=== PATIENT | female | born 1965 | race Caucasian/White ===

== ENCOUNTER 2022-01-29 09:18 | Outpatient (CLI) | payer BC, SELFPAY ==
[2022-01-29 13:38] LABS: Chloride* 104 mmol/L (96-114)
[2022-01-29 13:39] LABS: Potassium* 4.8 mmol/L (3.6-5.1); Sodium* 140 mmol/L (135-149)
[2022-01-29 13:41] LABS: Creatinine* 0.7 mg/dL (0.5-1.5); Estimated Glomerular Filt Rate 101 ml/min
[2022-01-29 13:42] LABS: Blood Urea Nitrogen* 15 mg/dL (7-30); Calcium* 9.5 mg/dL (8.4-10.6); Carbon Dioxide* 30 mmol/L (20-32); Glucose* 98 mg/dL (60-115)
[2022-01-29 14:36] LABS: Thyroid Stimulating Hormone* 0.084 uIU/mL (0.270-4.20)
== END 2022-01-29 09:19 | disposition home or self-care (01) ==
PROVIDERS: PCP Family Medicine; Visit Provider Family Medicine
DX: Z01.818 Encounter for other preprocedural examination (principal); I10 Essential (primary) hypertension; E66.9 Obesity, unspecified
CPT/HCPCS: 80048; 84436; 84443

== ENCOUNTER 2022-02-05 13:57 | Outpatient (CLI) | payer BC, SELFPAY | END 2022-02-05 13:58 | disposition home or self-care (01) | LOC: RAD 13:57 | PROVIDERS: PCP Family Medicine; Visit Provider Family Medicine | DX: Q23.1 Congenital insufficiency of aortic valve (principal) | CPT/HCPCS: 93306 ==

== ENCOUNTER 2022-03-01 13:50 | Outpatient (CLI) | payer BC, SELFPAY ==
--- NOTE | 2022-03-01 14:00 | CRLHL7_ITS ---
For Patients: As a result of the Century Cures Act, medical imaging exams and procedure reports are released immediately into your electronic medical record. You may view this report before your referring provider. If you have questions, please contact your health care provider. BILATERAL SCREENING MAMMOGRAM WITH COMPUTER-AIDED DETECTION AND TOMOSYNTHESIS TECHNIQUE: CC and MLO views were obtained. These mammographic images have been obtained using full-field digital technique. These mammographic images were interpreted with the benefit of computer-aided detection. Breast Tomosynthesis was used in this interpretation. COMPARISON FILM: diagnostic, 02/07/21 MRI, 02/01/21, 01/11/21. FINDINGS: The breasts are almost entirely fatty IMPRESSION: There is no radiographic evidence for malignancy. ASSESSMENT: BI-RADS Category 2: Benign RECOMMENDATION: Routine screening mammogram in 1 year. A lay language report of this examination will be provided to the patient. Noman Ag M.D. Diagnostic Radiologist [email or web address] CHEN/Dictated by: Noman Ag MD @ 03/02/2022 12:23:00 PM (Electronically Signed)
== END 2022-03-01 13:51 | disposition home or self-care (01) ==
LOC: MAMMO 13:50
PROVIDERS: PCP Family Medicine; Visit Provider Family Medicine
DX: Z12.31 Encounter for screening mammogram for malignant neoplasm of breast (principal)
CPT/HCPCS: 77063; 77067

== ENCOUNTER 2022-03-15 10:31 | Outpatient (CLI) | payer BC, SELFPAY ==
[2022-03-15 22:16] LABS: Free T4 Free Thyroxine* 1.38 ng/dL (0.70-1.85)
== END 2022-03-15 10:32 | disposition home or self-care (01) ==
PROVIDERS: PCP Family Medicine; Visit Provider Family Medicine
DX: E03.9 Hypothyroidism, unspecified (principal); I10 Essential (primary) hypertension
CPT/HCPCS: 84439; 84443

== ENCOUNTER 2022-05-02 11:00 | Outpatient (RCR) | payer BC, SELFPAY ==
[2022-01-29 09:41] LABS: Basophils Absolute Auto 0.02 K/uL (0.00-0.30); Basophils Percent Auto 0.4 % (0.0-3.0); Eosinophils Absolute Auto 0.18 K/uL (0.00-0.50); Eosinophils Percent Auto 3.9 % (0.0-7.0); Hematocrit 42.8 % (33.0-51.0); Hemoglobin* 14.2 gm/dL (12.0-16.0); Lymphocytes Percent Auto 17.1 % (20-44); Mean Corpuscular HGB Conc 33 gm/dL (32-36); Mean Corpuscular Hemoglobin 32 pg (26-34); Mean Corpuscular Volume 95 fL (80-100); Monocytes Percent Auto 11.3 % (0.0-11.0); Neutrophils Absolute Auto 3.14 K/uL (1.7-7.0); Neutrophils Percent Auto 67.3 % (42.0-72.0); Platelet Count* 217 K/uL (140-440); Red Blood Count 4.49 m/uL (4.00-5.20); White Blood Count* 4.67 K/uL (4.50-11.00)
[2022-01-29 09:42] LABS: Slide Review Reflex No
== END 2022-05-02 12:54 | disposition home or self-care (01) ==
PROVIDERS: PCP Family Medicine; Visit Provider Surgery
DX: I10 Essential (primary) hypertension (principal); Z01.818 Encounter for other preprocedural examination
CPT/HCPCS: 36415; 85025; 97140; 97530

== ENCOUNTER 2022-06-13 15:15 | Outpatient (RCR) | payer BC, SELFPAY ==
--- NOTE | 2022-07-04 13:49 | PC.NURSE ---
Pt called today requesting a Tamoxifen refill. She contacted [facility] in [place] who was going to send a fax refill request, however, pt was also instructed to call as well. TONY Valladares notified. She will forward the request to the appropriate provider.
--- NOTE | 2022-07-17 15:34 | ONC.NURNOTE ---
Called pt to review changes in [facility] program and Dr. Freeman's transition to [place], returning to [facility] ~ Spring 2022. Pt would like to continue care with [facility]; f/u due 10/2022.
== END 2022-09-03 23:59 | disposition home or self-care (01) ==
LOC: CCIC 15:15
PROVIDERS: PCP Family Medicine; Visit Provider Internal Medicine Hematology & Oncology
DX: C50.912 Malignant neoplasm of unspecified site of left female breast (principal); Z17.0 Estrogen receptor positive status [ER+]; Z79.810 Long term (current) use of selective estrogen receptor modulators (SERMs); E66.9 Obesity, unspecified; Z98.84 Bariatric surgery status
CPT/HCPCS: 99212; 99214; 99215

== ENCOUNTER 2023-01-15 19:20 | Outpatient (CLI) | payer BC, SELFPAY ==
--- NOTE | 2023-01-30 08:15 | P.SLS_ITS ---
Sleep Study Details Details Interpreting Provider: -[id number]- Date of Sleep Study: 01/15/23 Sleep Study Details: STUDY TYPE:? Home unattended ? BMI:? 31.5 ORDERING PROVIDER:Camryn Limon INDICATION:? Concerns about sleep apnea ? SLEEP SUMMARY:? 532.8 minutes monitored RESPIRATORY SUMMARY:? AHI 13.9, supine 18.1, left lateral 3.2, right lateral 5.4 Low oxygen 83 12.6% of study oxygen less than 90% Snoring 2.7% PERIODIC LIMB MOVEMENTS OF SLEEP:? Not recorded during home study CARDIAC:? Range 44-88, mean 54.7 IMPRESSION:? Mild obstructive sleep apnea with supine position dependency and significant hypo oxygenation. RECOMMENDATION: AutoSet CPAP pressure 4-17. A dental appliance may be a viable option for this patient.
== END 2023-01-15 19:21 | disposition home or self-care (01) ==
LOC: SLEEP 19:21
PROVIDERS: PCP Family Medicine; Visit Provider Otolaryngology
DX: G47.33 Obstructive sleep apnea (adult) (pediatric) (principal)
CPT/HCPCS: 95806

== ENCOUNTER 2023-02-28 12:55 | Outpatient (CLI) | payer BC, SELFPAY ==
--- NOTE | 2023-02-28 13:00 | CRLHL7_ITS ---
For Patients: As a result of the Century Cures Act, medical imaging exams and procedure reports are released immediately into your electronic medical record. You may view this report before your referring provider. If you have questions, please contact your health care provider. DXA BONE MINERAL DENSITY STUDY Reason for exam: Status post left breast lumpectomy. Screening. Current height (in): 66. Weight (lb): 194. Menopause age: N/A Ethnicity: White 1. Have you had a previous hip or vertebral fracture? No. 2. Have you had any fractures during your adult life which did not result from significant trauma (e.g., auto accident)? No. 3. Did either of your parents have a hip fracture? No. 4. Do you smoke? No. 5. Have you ever taken Glucocorticoids? No. 6. Do you have rheumatoid arthritis? No. 7. Do you have secondary osteoporosis? No. 8. Do you drink 3 or more alcoholic drinks per day? No. 9. Are you being treated for osteoporosis? No. 10. Have you ever taken any of the following medications: Actonel, Evista, Fosamax, Miacalcin, Reclast, Boniva, Forteo, HRT (i.e., estrogen/hormone therapy), Protelos, Prolia, Vitamin D, Calcium, other ??? please specify. ANSWER: Yes, Vitamin D and calcium. 11. Do you have any of the following medical conditions: Anorexia or bulimia, asthma or emphysema, end stage renal disease, hyperparathyroidism, any seizure disorders, cancer, inflammatory bowel diseases, hysterectomy, other ??? please specify. ANSWER: Yes, cancer and bicuspid aortic valve 12. What was your maximum height (inches)? 66. 13. Do you perform weight bearing exercise regularly? Yes. 14. Do you regularly consume dairy products? Yes. 15. Do you drink caffeinated beverages? No. If female: 16. At what age did your period start? 12. 17. Are you premenopausal? Yes. 18. How many full-term pregnancies have you had? 3. 19. Have you ever missed your period for more than 6 months in a row (not including or menopause)? Yes. TECHNIQUE: Bone mineral density study was performed using the [employer]. FINDINGS: The results of the study expressed as bone mineral density (BMD) are as follows: Lumbar spine L1 to L4: BMD: 1.378 g/cm2. T-score: 3.0. Z-score: 4.3 Neck Left: BMD: 0.939 g/cm2. T-score: 0.8. Z-score: 2.0 Right: BMD: 1.016 g/cm2. T-score: 1.5. Z-score: 2.7 Total Left: BMD: 1.057 g/cm2. T-score: 0.9. Z-score: 1.8 Right: BMD: 1.088 g/cm2. T-score: 1.2. Z-score: 2.0 IMPRESSION: Normal findings with no increased fracture risk identified. The Z-score is within the expected range for age (Z-score above -2.0). (The World Health Organization [WHO] criteria do not apply to this patient). This patient does not fit the criteria to use the database of postmenopausal women. That database is useful for perimenopausal and postmenopausal women, and men 50 years old and older. Therefore, the T-scores are not useful to evaluate this patient and only the Z-scores are used. Noman Ag M.D. Diagnostic Radiologist [email or web address] LINDA/ivy haynes/Dictated by: Noman Ag MD @ 03/01/2023 11:25:00 AM (Electronically Signed)
== END 2023-02-28 12:56 | disposition home or self-care (01) ==
LOC: RAD 12:56
PROVIDERS: PCP Family Medicine; Visit Provider Internal Medicine Hematology & Oncology
DX: Z13.820 Encounter for screening for osteoporosis (principal)
CPT/HCPCS: 77080

== ENCOUNTER 2023-03-04 15:16 | Outpatient (CLI) | payer BC, SELFPAY ==
--- NOTE | 2023-03-04 15:20 | CRLHL7_ITS ---
For Patients: As a result of the Century Cures Act, medical imaging exams and procedure reports are released immediately into your electronic medical record. You may view this report before your referring provider. If you have questions, please contact your health care provider. BILATERAL SCREENING MAMMOGRAM WITH COMPUTER-AIDED DETECTION AND TOMOSYNTHESIS TECHNIQUE: CC and MLO views were obtained. These mammographic images have been obtained using full-field digital technique. These mammographic images were interpreted with the benefit of computer-aided detection. Breast Tomosynthesis was used in this interpretation. COMPARISON FILM: 03/01/22, 01/24/21, 01/11/21. FINDINGS: There are scattered areas of fibroglandular density IMPRESSION: There is no radiographic evidence for malignancy. ASSESSMENT: BI-RADS Category 2: Benign RECOMMENDATION: Routine screening mammogram in 1 year. A lay language report of this examination will be provided to the patient. Noman Ag M.D. Diagnostic Radiologist [email or web address] CHEN/Dictated by: Noman Ag MD @ 03/05/2023 8:24:00 AM (Electronically Signed)
== END 2023-03-04 15:17 | disposition home or self-care (01) ==
LOC: MAMMO 15:16
PROVIDERS: PCP Family Medicine; Visit Provider Internal Medicine Hematology & Oncology
DX: Z12.31 Encounter for screening mammogram for malignant neoplasm of breast (principal); Z13.820 Encounter for screening for osteoporosis
CPT/HCPCS: 77063; 77067

== ENCOUNTER 2023-03-06 14:22 | Outpatient (RCR) | payer BC, SELFPAY ==
[2023-03-06 21:03] LABS: Estradiol Premenol Female <20 pg/mL
[2023-03-07 02:56] LABS: Luteinizing Hormone 20.6 IU/L
== END 2023-04-30 23:59 | disposition home or self-care (01) ==
LOC: CCIC 14:22
PROVIDERS: PCP Family Medicine; Referring Provider Family Medicine; Visit Provider Internal Medicine Hematology & Oncology
DX: C50.912 Malignant neoplasm of unspecified site of left female breast (principal); Z17.0 Estrogen receptor positive status [ER+]; G47.00 Insomnia, unspecified; E66.9 Obesity, unspecified; Z79.810 Long term (current) use of selective estrogen receptor modulators (SERMs)
CPT/HCPCS: 36415; 82670; 83001; 83002; 99212; 99214

== ENCOUNTER 2023-05-17 09:45 | Outpatient (CLI) | payer BC, SELFPAY | END 2023-05-17 09:46 | disposition home or self-care (01) | LOC: RAD 09:46 | PROVIDERS: PCP Family Medicine; Visit Provider Family Medicine | DX: Q23.1 Congenital insufficiency of aortic valve (principal); I51.7 Cardiomegaly; I35.1 Nonrheumatic aortic (valve) insufficiency | CPT/HCPCS: 93306 ==

== ENCOUNTER 2023-10-03 15:30 | Outpatient (RCR) | payer BC, SELFPAY ==
--- NOTE | 2023-09-03 09:35 | ONC.NURNOTE ---
Addendum entered by Evita Marte RN 09/10/23 11:48: Reviewed with Dr. Freeman; advise to double Vit D x 2-3 weeks. RTC if no improvement. Reviewed with pt. 6 mo f/u appt with Wendy Schaefer PA-C moved earlier from 11/14/23 to 10/03/23. If pt feeling better, ok to push appt back to October. Pt verbalizes understanding. Addendum entered by Evita Marte RN 09/03/23 13:33: Lm for pt recommending Tylenol, warm/cool compresses, warm baths with epsom salts, OTC arthritis creams. Reinforced we will review with Onc team when back in office next 09/08, saying if she has a sudden worsening of pain or needs more intervention prior to then to see a PCP. Original Note: Patient called office with the following concerns: Needs her ambien refilled for sleep. She states that she uses this about weekly. She was informed that this would be addressed next week when Dr. Freeman returns to the office. Patient continues to have aches and pains in bilateral shoulders and upper arms. She notes that this has been going on since she was diagnosed with influenza a few weeks ago. At last visit with Wendy Schaefer, they attributed to influenza, but it has not improved. She is wondering if there is something that she should take or have her medication switched. She was told that [facility] would call her with suggestions to try later this afternoon, and plan for whether this would be cause for changing her AI.
== END 2023-11-05 23:59 | disposition home or self-care (01) ==
LOC: CCIC 15:30
PROVIDERS: PCP Family Medicine; Referring Provider Family Medicine; Visit Provider Physician Assistant
DX: C50.912 Malignant neoplasm of unspecified site of left female breast (principal); Z17.0 Estrogen receptor positive status [ER+]; Z79.811 Long term (current) use of aromatase inhibitors; G47.00 Insomnia, unspecified; R42 Dizziness and giddiness; R51.9 Headache, unspecified; Z90.3 Acquired absence of stomach [part of]
CPT/HCPCS: 80053; 80061; 84443; 99212; 99214; 99215; G0463

== ENCOUNTER 2024-03-11 08:09 | Outpatient (CLI) | payer BC, SELFPAY ==
--- OUTSIDE RECORDS SUMMARY | 2024-03-11 08:12 | XMS_ITS ---
Author Organization [facility] Address [address], [place] [address] Care Team Providers Care Handle Rounder Operator Name Role Phone Rene Bustillo MD Primary Care Provider [phone] Active Problems Problem Noted Date Diagnosed Date Primary osteoarthritis of left ankle 04/09/2022 Overview (04/09/2022): Added automatically from request for surgery [id number] Acquired varus deformity of left ankle Overview (04/09/2022): Added automatically from request for surgery [id number] S/P laparoscopic cholecystectomy 02/19/2022 S/P laparoscopic sleeve gastrectomy 02/19/2022 Overview (02/19/2022): laparoscopic sleeve gastrectomy, cholecystectomy, upper endoscopy Please do not schedule any elective surgeries before 03/22/22 as patient is s/p bariatric surgery. Invasive ductal carcinoma of breast, female, lef t 02/02/2021 Obstructive sleep apnea 01/31/2021 Overview (01/31/2021): Setting: AutoPAP 5-18 cmH20 Supplied by: Danya Foster PSG done: AHI RDI Lowest O2 Sat: Morbid obesity with BMI of 40.0-44.9, adult 07/2 08/2020 Ascending aortic aneurysm 01/13/2021 Bicuspid aortic valve 01/13/2021 Hypertension 01/13/2021 H/O tubal ligation 01/13/2021 Current Oncology Plans No current plan information found. Past Plans No past plan information found. Radiation Treatments * No radiation treatments are documented for this patient in [facility]. Treatments may have been administered in another system. Lifetime Dose Tracking * Chemical Lifetime Dose Automatic Entry Manual Entr y Fluoro Time 3.4 minutes 3.4 minutes 0 minutes Total Air Kerma 4.57 mGy 4.57 mGy 0 mGy
--- OUTSIDE RECORDS SUMMARY | 2024-03-11 08:12 | XMS_ITS | Encounter Summary ---
Author Organization [facility] Address [address], [place] [address] Care Team Providers Care Mold Setter Name Role Phone Rene Bustillo MD Primary Care Provider [phone] Encounter Details Date Type Department Care Team (Late Contact Info) Description 03/06/2024 E-Visit [facility] [address] [place] [address] Mychart, [place] [address] Social History Tobacco Use Types Packs/Day Years Used Date Smoking Tobacco: Former Cigarettes Q uit: 2010 Smokeless Tobacco: Never Alcohol Use Standard Drinks/Week Comments Not Currently 0 (1 standard drink = 0.6 oz pur e alcohol) occasional PHQ-2 Answer Date Recorded PHQ-2 Score 0 03/10/2024 Sex and Gender Information Value Date Recorded Sex Assigned at Not on file Gender Identity Not on file Sexual Orientation Not on file documented as of this encounter Plan of Treatment Upcoming Encounters Date Type Department Care Team ([facility] Contact Info) Description 05/28/2024 9:00 AM RURAL CARRIER ASSOCIATE Telemedicine [facility] [address] [facility] [address] [facility] [address] [place] [address] Ramya Porras, RDN, LD [address] [place] [address] 08/18/2024 9:20 AM RURAL CARRIER ASSOCIATE Telemedicine [facility] [address] [place] [address] [address] [place] [address] Joseph Chase PA-C [address] [facility] [address] [place] [address] documented as of this encounter Visit Diagnoses Not on filedocumented in this encounter Care Teams Mold Setter Relationship Specialty Start Date End Date Rene Bustillo MD [address] [place] [address] PCP - General Family Practice 06/19/22 documented as of this encounter
--- OUTSIDE RECORDS SUMMARY | 2024-03-11 08:12 | XMS_ITS | Encounter Summary ---
Author Organization [facility] Address [address], [place] [address] Care Team Providers Care Credit Portfolio Advisor Name Role Phone Rene Bustillo MD Primary Care Provider [phone] Reason for Visit * Reason Comments Medication Questions Entered automatical ly based on patient selection in [employer]. Encounter Details Date Type Department Care Team ([facility] Contact Info) Description 12/16/2023 8:30 AM CDT E-Visit [facility] [place] [address] [place] [address] [address] [place], [place] [address] Joseph Chase PA-C [address] [place] [address] [place] [id number] Chief Comp: Medication Questions Social History Tobacco Use Types Packs/Day Years Used Date Smoking Tobacco: Former Cigarettes Q uit: 2010 Smokeless Tobacco: Never Alcohol Use Standard Drinks/Week Comments Not Currently 0 (1 standard drink = 0.6 oz pur e alcohol) occasional PHQ-2 Answer Date Recorded PHQ-2 Score 0 10/21/2023 Sex and Gender Information Value Date Recorded Sex Assigned at Not on file Gender Identity Not on file Sexual Orientation Not on file documented as of this encounter Plan of Treatment Upcoming Encounters Date Type Department Care Team ([facility] Contact Info) Description 05/28/2024 9:00 AM MILK DELIVERY DRIVER Telemedicine [facility] [place] [address] [facility] [address] [place], [place] [address] Ramya Porras RDN, LD [address] [place], [place] [id number] 08/18/2024 9:20 AM MILK DELIVERY DRIVER Telemedicine [facility] [address] [facility] [address] [place], [place] [address] Joseph Chase PAMarco AntonioC [address] [facility] [address] [place], [place] [id number] documented as of this encounter Visit Diagnoses Not on filedocumented in this encounter Care Teams Credit Portfolio Advisor Relationship Specialty Start Date End Date Rene Bustillo MD [address] [place] [address] PCP - General Family Practice 06/19/22 documented as of this encounter
--- OUTSIDE RECORDS SUMMARY | 2024-03-11 08:12 | XMS_ITS | Encounter Summary ---
Author Organization [facility] Address [address], [place] [address] Care Team Providers Care Executive Assistant To President Name Role Phone Rene Bustillo MD Primary Care Provider [phone] Reason for Visit * Reason Comments Nutrition Counseling Encounter Details Date Type Department Care Team (Late st Contact Info) Description 02/27/2024 10:00 AM CDT Telemedicine [facility] [address] [facility] [address] [place], [place] [address] Ramya Porras, SAMANTHAN, LD [address] [place] [address] Morbid obesity with BMI of 40.0-44.9, adult ([facility]) (Primary Dx); Obstructive sleep apnea; Hypertension, unspecified type ([facility]); S/P laparoscopic sleeve gastrectomy Social History Tobacco Use Types Packs/Day Years Used Date Smoking Tobacco: Former Cigarettes Q uit: 2009 Smokeless Tobacco: Never Alcohol Use Standard Drinks/Week Comments Not Currently 0 (1 standard drink = 0.6 oz pur e alcohol) occasional PHQ-2 Answer Date Recorded PHQ-2 Score 0 10/21/2023 Sex and Gender Information Value Date Recorded Sex Assigned at Not on file Gender Identity Not on file Sexual Orientation Not on file documented as of this encounter Last Filed Vital Signs Vital Sign Reading Time Taken Comments Blood Pressure - - Pulse - - Temperature - - Respiratory Rate - - Oxygen Saturation - - Inhaled Oxygen Concentration - - Weight 93.4 kg (206 lb) 02/27/2024 10:08 AM CDT Height 167.6 cm (5' 6) 02/27/2024 10:08 AM CDT Body Mass Index 33.25 02/27/2024 10:08 AM CDT documented in this encounter Progress Notes * Brandonoc Ramya Andres, RDN, LD - 02/27/2024 10:00 AM CDT [facility] Medical Nutrition Therapy: Bariatric Post-Op/Weight Management Post-op ASSESSMENT: Referring Provider: Joseph Chase PA-C BMI: Estimated body mass index is 33.25 kg/m?? as calculated from the following: Height as of this encounter: 1.676 m (5' 6). Weight as of this encounter: 93.4 kg (206 lb). Follow-up after sleeve gastrectomy surgery. Date of Surgery: February 19, 2022. Since last RD visit: Overall, feels good. Still struggles with cravings for sweets or other snacks after dinner. Craves specific textures and flavors as part of her wind down nightly routine. Sometimes she is satisfiedwith a small portion of a snack, other days, she will go back for more. Has tried many things to distract or change these cravings without success. Did start naltrexone but did not notice it reduced her desire to eat in the evenings. Traveled often this summer, more dining out. Water aerobics on hold due to skin cancer treatment on her back. Exercise: Patient is not engaging in physical activity: Presently on hold due to skin cancer treatment on her back - typically does water aerobics. Discussed switching her exercise routine to strength training 2-3 x week instead to see if it stimulates further weight loss. DIAGNOSIS: We will continue to treat the following obesity-associated medical conditions and conditions exacerbated by or contributing to weight gain by aggressive management of weight: LINH, HtN INTERVENTION: Medical Nutrition Therapy provided on post bariatric surgery nutrition and activity behaviors. MONITORING AND EVALUATION: Patient goals: 1. Shrink portion of sweets at night 2. Try eating your snack a bit later in the evening so not tempted to go back for second snack- wait it out to have your first snack.? 3. Pt considering behavioral health f/u to explore other skills for emotional eating. Gave ph #. 4. Suggested switching exercise up- trial weights 2-3 x week in addition to swimming or walking. Follow up with dietitian in 3-6 month(s). Time: 30 minutes Thank you for this referral This visit was conducted via video documented in this encounter Plan of Treatment Upcoming Encounters Date Type Department Care Team (Late st Contact Info) Description 05/28/2024 9:00 AM HAND FUR CLEANER Telemedicine [facility] [address] [facility] [address] [place], [place] [address] Ramya Porras RDN, LD [address] [place], [place] [address] 08/18/2024 9:20 AM HAND FUR CLEANER Telemedicine [facility] [place] [address] [facility] [address] [place], [place] [address] Joseph Chase PA-C [address] [facility] [address] [place], [place] [address] documented as of this encounter Visit Diagnoses Diagnosis Morbid obesity with BMI of 40.0-44.9, adult ([facility])- Primary Obstructive sleep apnea Obstructive sleep apnea (adult) (pediatric) Hypertension, unspecified type ([facility]) S/P laparoscopic sleeve gastrectomy documented in this encounter Care Teams Executive Assistant To President Relationship Specialty Start Date End Date Rene Bustillo MD [address] [place] [address] PCP - General Family Practice 06/19/22 documented as of this encounter
--- OUTSIDE RECORDS SUMMARY | 2024-03-11 08:12 | XMS_ITS | Encounter Summary ---
Author Organization Replaced by [facility] Address [address], [place] [address] Care Team Providers Care Machinist Supervisor Outside Name Role Phone Rene Bustillo MD Primary Care Provider [phone] Encounter Details Date Type Department Care Team (Late Contact Info) Description 03/05/2024 10:00 AM CDT Lab Visit [address] [address] Status post bariatric surgery; Intestinal malabsorption, unspecified type; Personal history of endocrine disorder Social History Tobacco Use Types Packs/Day Years [...] Upcoming Encounters Date Type Department Care Team ([facility] Contact Info) Description 05/28/2024 9:00 AM [facility] Telemedicine [facility] [address] [facility] [address] [place], [place] [address] Ramya Porras, RDN, LD [address] [place] [address] 08/18/2024 9:20 AM [facility] Telemedicine [facility] [address] [facility] [address] [place] [address] Joseph Chase PA-C [address] [facility] [address] [place] [address] documented as of this encounter Procedures Procedure Name Priority Date/Time Associated Diagnosis Comments VITAMIN D 25-HYDROXY, TOTAL Routine 03/05/2024 9:23 AM CDT Personal history of endocrine disorder INTACT PTH Routine 03/05/2024 9:23 AM CDT Status post bariatric surgery Intestinal malabsorption, unspecified type PREALBUMIN Routine 03/05/2024 9:23 AM CDT Status post bariatric surgery Intestinal malabsorption, unspecified type COMPLETE BLOOD COUNT-NO DIFF Routine 03/05/2024 9:23 AM CDT Status post bariatric surgery Intestinal malabsorption, unspecified type FERRITIN Routine 03/05/2024 9:23 AM CDT Status post bariatric surgery Intestinal malabsorption, unspecified type VITAMIN B12 ONLY Routine 03/05/2024 9:23 AM CDT Status post bariatric surgery Intestinal malabsorption, unspecified type IRON PROFILE (IRON,TIBC,%SAT.(CA LC)) Routine 03/05/2024 9:23 AM CDT Status post bariatric surgery Intestinal malabsorption, unspecified type CALCIUM Routine 03/05/2024 9:23 AM CDT Status post bariatric surgery Intestinal malabsorption, unspecified type documented in this encounter Results * PREALBUMIN (03/05/2024 9:23 AM CDT) Prealbumin 26.5 16.0 - 38.0 mg/dL 03/05/2024 2:39 PM CDT [facility] Blood Venipuncture / Unknown 03/05/2024 9:23 AM CDT 03/05/2024 9:23 AM CDT Joseph Chase PA-C LAB_1 Performing Organization Address [facility] Co de Phone Number [facility] [address] * Calcium (03/05/2024 9:23 AM CDT) Calcium 9.7 8.4 - 10.4 mg/dL 03/05/2024 3:19 PM CDT [facility] Blood Venipuncture / Unknown 03/05/2024 9:23 AM CDT 03/05/2024 9:23 AM CDT Joseph Chase PA-C LAB_1 Performing Organization Address [facility] de Phone Number [facility] [address] [place] [address] * Intact PTH (03/05/2024 9:23 AM CDT) Intact PTH 31 10 - 100 pg/mL 03/05/2024 2:50 PM CDT [facility] Blood Venipuncture / Unknown 03/05/2024 9:23 AM CDT 03/05/2024 9:23 AM CDT Joseph Chase PA-C LAB_1 Performing Organization Address [facility] de Phone Number [facility] [address] * Vitamin D 25-Hydroxy, Total (03/05/2024 9:23 AM CDT) Vitamin D, 25-OH, Total 63 30 - 80 ng/mL 03/05/2024 2:56 PM CDT [facility] Blood Venipuncture / Unknown 03/05/2024 9:23 AM CDT 03/05/2024 9:23 AM CDT Joseph E Gospodarek PA-C LAB_1 Performing Organization Address [facility] Co de Phone Number [facility] [address] * FERRITIN (03/05/2024 9:23 AM CDT) Ferritin 87 9 - 204 ng/mL 03/05/2024 3:06 PM CDT [facility] Blood Venipuncture / Unknown 03/05/2024 9:23 AM CDT 03/05/2024 9:23 AM CDT Joseph Ruiz Salvatore BRONSON-C LAB_1 Performing Organization Address [facility] Phone Number [facility] [address] * IRON PROFILE (IRON,TIBC,%SAT.(CALC)) (03/05/2024 9:23 AM CDT) Pathologist [facility] Iron 98 50 - 170 mcg/dL 03/05/2024 2:40 PM CDT [facility] Transferrin 245 180 - 382 mg/dL 03/05/2024 2:40 PM CDT [facility] TIBC, Calculated 306 240 - 450 mcg/dL 03/05/2024 2:40 PM CDT [facility] % Saturation, Calculated 32 10 - 50 % 03/05/2024 2:40 PM CDT [facility] Blood Venipuncture / Unknown 03/05/2024 9:23 AM CDT 03/05/2024 9:23 AM CDT Joseph Ruiz Salvatore LARRYC LAB_1 Performing Organization Address [facility] de Phone Number [facility] [address] * B12 ONLY (03/05/2024 9:23 AM CDT) Vitamin B12 597 213 - 816 pg/mL 03/05/2024 3:13 PM CDT [facility] Blood Venipuncture / Unknown 03/05/2024 9:23 AM CDT 03/05/2024 9:23 AM CDT Joseph Chase PA-C LAB_1 [facility] [address] [place], [place] [address] * Complete Blood Count-No Diff (03/05/2024 9:23 AM CDT) WBC 4.5 3.5 - 10.5 x10(9)/L 03/05/2024 9:31 AM CDT [facility] RBC 4.43 3.90 - 5.03 x10(12)/L 03/05/2024 9:31 AM T [facility] Hemoglobin 13.8 12.0 - 15.5 g/dL 03/05/2024 9:31 AM T [facility] HCT 41.6 34.9 - 44.5 % 03/05/2024 9:31 AM [facility] MCV 93.9 80.0 - 100.0 fL 03/05/2024 9:31 AM T [facility] MCH 31.2 27.6 - 33.3 pg 03/05/2024 9:31 AM [facility] MCHC 33.2 31.5 - 35.2 g/dL 03/05/2024 9:31 AM [facility] RDW 13.3 11.9 - 15.5 % 03/05/2024 9:31 AM [facility] Platelets 220 150 - 450 x10(9)/L 03/05/2024 9:31 AM [facility] Blood Venipuncture / Unknown 03/05/2024 9:23 AM CDT 03/05/2024 9:23 AM CDT Joseph Chase PA-C LAB_1 [facility] [address] [place] [address], [facility] documented in this encounter Visit Diagnoses Diagnosis Status post bariatric surgery Bariatric surgery status Intestinal malabsorption, unspecified type Personal history of endocrine disorder Personal history of other endocrine, metabolic, and immunity disorders documented in this encounter Care Teams Machinist Supervisor Outside Relationship Specialty Start Date End Date Rene Bustillo MD [address] [place] [address] PCP - General Family Practice 06/19/22 documented as of this encounter
--- OUTSIDE RECORDS SUMMARY | 2024-03-11 08:12 | XMS_ITS | Clinical Summary ---
Author Organization [facility] Address [address] [place] [address] Care Team Providers Care Slip Presser Name Role Phone Rene Bustillo MD Primary Care Provider [phone] Source Comments You are receiving this document as you are listed as the primary care provider,follow-up provider, or the patient has been referred to you for consultation.This is in compliance with the Medicare and[employer] [employer] EHR Incentive Program,which states Providers who transition their patient to another setting of careor provider of care or refers their patient to another provider of care shouldprovide summary care record for each transition of care or referral. PingMD Allergies Active Allergy Reactions Criticality Noted Date Comments Nsaids Unknown 06/14/2022 Medications Medication Sig Dispensed Refills Start Date End Date Status tamoxifen (NOLVADEX) 20 MG tablet Take 1 Tablet (20 mg) by mouth daily. 02/26/2022 Active acetaminophen (TYLENOL) 325 MG tablet Take Tylenol 650 mg four times per day - once when you get up, once before you go to bed, once between when you would normally have breakfast and lunch, and the last between a normal lunch and dinner. 02/19/2022 Active losartan (COZAAR) 50 MG tablet Take 0.5 Tablets (25 mg) by mouth daily. 03/15/2022 Active magnesium oxide (MAGOX 400) 400 (241.3 Mg) MG tablet 05/24/2021 Active cholecalciferol (VITAMIND3) 50 MCG (2000 UT) tablet Take 2 Tablets (4,000 Units) by mouth daily. Active senna (SENOKOT) 8.6 MG tablet Take 1 Tablet by mouth daily as needed for Constipation (Mild Constipation). 30 Tablet 1 06/20/2022 Active zolpidem (AMBIEN) 5 MG tablet Take 1 Tablet (5 mg) by mouth at bedtime as needed for Sleep. Active Multiple Vitamins-Iron (MULTIVITAMIN/I AAKASH OR) Active anastrozole (ARIMIDEX) 1 MG tablet Take 1 Tablet (1 mg) by mouth daily. 06/06/2023 Active vitamin B-12 (AKA: CYANOCOBALAMIN) 1000 MCG tablet Take 1 Tablet (1,000 mcg) by mouth once a week. Take sublingually weekly Active naltrexone (REVIA) 50 MG tablet Take 0.5 Tablets (25 mg) by mouth daily. 45 Tablet 1 10/22/2023 Active topiramate (TOPAMAX) 25 MG tablet Take 1 Tablet (25 mg) by mouth two times a day. 180 Tablet 1 03/10/2024 5 Active Multiple Vitamins-Minera ls (BARIATRIC FUSION OR) Take 1 Tablet by mouth daily. Contains enough b12 per RD 4 Discontinued( *Patient decision or formulary issue) Active Problems Problem Noted Date Diagnosed Date Primary osteoarthritis of left ankle 04/09/2022 Overview (04/09/2022): Added automatically from request for surgery [id number] Acquired varus deformity of left ankle 2 Overview (04/09/2022): Added automatically from request for surgery [id number] S/P laparoscopic cholecystectomy 02/19/2022 S/P laparoscopic sleeve gastrectomy 02/19/2022 Overview (02/19/2022): laparoscopic sleeve gastrectomy, cholecystectomy, upper endoscopy Please do not schedule any elective surgeries before 03/22/22 as patient is s/p bariatric surgery. Invasive ductal carcinoma of breast, female, lef t 02/02/2021 Obstructive sleep apnea 01/31/2021 Overview (01/31/2021): Setting: AutoPAP 5-18 cmH20 Supplied by: [employer] [place] PSG done: AHI RDI Lowest O2 Sat: Morbid obesity with BMI of 40.0-44.9, adult 12/23 Ascending aortic aneurysm 01/13/2021 Bicuspid aortic valve 01/13/2021 Hypertension 01/13/2021 H/O tubal ligation 01/13/2021 Encounters Date Type Department Care Team Description 03/10/2024 9:40 AM CDT Telemedicine [facility] [address] [place] [address] Joseph Chase PA-C Insomnia, unspecified type (Primary Dx) 03/06/2024 E-Visit [facility] [address] [address] [place], Generic Provider 03/05/2024 10:00 AM CDT Lab Visit [facility] [id number] [place] [phone] Status post bariatric surgery; Intestinal malabsorption, unspecified type; Personal history of endocrine disorder 02/27/2024 10:00 AM CDT Telemedicine [facility] [address] [address] Ramya Porras RDN, LD Morbid obesity with BMI of 40.0-44.9, adult (HRC) (Primary Dx); Obstructive sleep apnea; Hypertension, unspecified type (HRC); S/P laparoscopic sleeve gastrectomy 02/12/2024 1:40 PM CDT E-Visit [facility] [address] [address] Joseph Chase PA-C Chief Comp: QUESTIONS, GENERAL 12/16/2023 8:30 AM CDT E-Visit [facility] [address] [address] Joseph Chase PA-C Chief Comp: Medication Questions from Last 3 Months Social History Tobacco Use Types Packs/Day Years [...] on file Sexual Orientation Not on file Last Filed Vital Signs Vital Sign Reading Time Taken Comments Blood Pressure 115/80 06/20/2022 10:49 AM [facility] Pulse 70 06/20/2022 10:49 AM CHAIR SPRINGER Temperature 36.5 ??C (97.7 ??F) 06/20/2022 10:[address] Respiratory Rate 16 06/20/2022 10:49 AM CHAIR SPRINGER Oxygen Saturation 93% 06/20/2022 10:49 AM CHAIR SPRINGER Inhaled Oxygen Concentration - - Weight 93.9 kg (207 lb) 03/10/2024 8:17 AM CDT Height 167.6 cm (5' 6) 03/10/2024 8:17 AM CDT Body Mass Index 33.41 03/10/2024 8:17 AM CDT Plan of Treatment Upcoming Encounters Date Type Department Care Team (Late st Contact Info) Description 05/28/2024 9:00 AM [facility] Telemedicine [facility] [address] [place], [place] [address] Ramya Porras RDN, LD [address] [place], [place] [phone] 08/18/2024 9:20 AM [facility] Telemedicine [facility] [address] [place] [address] Joseph Chase PA-C [address] [facility] [address] [place], [place] [address] Health Maintenance Due Date Last Done Comments Cervical Cancer Screening Due 1965 Colon Cancer Screening Plan Due 1965 Hep C Screening (Preventive Services) 1965 HIV Screening (Preventive Services) 1981 Adult Preventive Visit 1983 HepB (1) 1984 Mammogram 09/23/2019 09/22/2018 Diabetes Screening- (based on age and BMI) 11/03/2023 11/02/2020 COVID-19 Vaccine ( season) 2024 04/27/2022, 07/23/2021, 01/11/2021, Additional history exists Influenza (#1) 2024 04/11/2023, 11/0 09/2021, 03/16/2021, Additional history exists Cholesterol 11/02/2025 11/02/2020 DTaP/Tdap/Td (3 - Tdap) 12/19/2031 12/18/2021, 05/13 Zoster/Shingles Completed 03/16/2021, 12/19/2020 HepA Aged Out No longer eligi ble based on patient's age to complete this topic Hib Aged Out No longer eligi ble based on patient's age to complete this topic IPV (Polio) Aged Out No longer eligi ble based on patient's age to complete this topic MCV4 Aged Out No longer eligi ble based on patient's age to complete this topic Pneumococcal Aged Out No longer eligi ble based on patient's age to complete this topic Medical Devices Implanted Type Area Beaming Inspector Device Identifier Shelf Expiration Date Model / Serial / Lot Infinity Adaptis Tibial Tray Size 1 Implanted:Qty : 1 on 06/19/2022 by Jabari Rios DPM at [facility] DEVICE Left: [employer] 04/17/2030 [id number] / 000 / [id number] Infinity Adaptis Benjamín Dome, Flat Cut Implanted:Qty : 1 on 06/19/2022 by Jabari Rios DPM at [facility] Left: [employer] 05/14/2030 [id number] / 000 / [id number] Infinity Everlast Cross-Linked Poly Insert Size 1/1+, H: 8mm Implanted:Qty : 1 on 06/19/2022 by Jabari Rios DPM at [facility] Left: [employer] 11/29/2029 [id number] / 000 / [id number] Procedures Procedure Name Priority Date/Time Associated Diagnosis Comments PREALBUMIN Routine 03/05/2024 9:23 AM CDT Status post bariatric surgery Intestinal malabsorption, unspecified type CALCIUM Routine 03/05/2024 9:23 AM CDT Status post bariatric surgery Intestinal malabsorption, unspecified type INTACT PTH Routine 03/05/2024 9:23 AM CDT Status post bariatric surgery Intestinal malabsorption, unspecified type VITAMIN D 25-HYDROXY, TOTAL Routine 03/05/2024 9:23 AM CDT Personal history of endocrine disorder FERRITIN Routine 03/05/2024 9:23 AM CDT Status [...] post bariatric surgery Intestinal malabsorption, unspecified type HGB A1C Routine 11/02/2020 10:28 AM CDT Abnormal weight gain Screening for diabetes mellitus LIPID PANEL & DIRECT LDL (IF NEEDED) Routine 11/02/2020 10:28 AM CDT Screening for lipoid disorders from Last 3 Months or Most Recently Relevant to Health Maintenance Results * Vitamin D 25-Hydroxy, Total (03/05/2024 9:23 AM CDT) Vitamin D, 25-OH, Total 63 30 - 80 ng/mL 03/05/2024 2:56 PM CDT [facility] Blood Venipuncture / Unknown 03/05/2024 9:23 AM CDT 03/05/2024 9:23 AM CDT Joseph LARRYC LAB_1 Performing Organization Address [facility] de Phone Number [facility] [address] [place] [address] * Intact PTH (03/05/2024 9:23 AM CDT) Intact PTH 31 10 - 100 pg/mL 03/05/2024 2:50 PM CDT [facility] Blood Venipuncture / Unknown 03/05/2024 9:23 AM CDT 03/05/2024 9:23 AM CDT Joseph Sara Salvatore CANTOR LAB_1 Performing Organization Address [facility] Phone Number [facility] [address] [place] [address] * PREALBUMIN (03/05/2024 9:23 AM CDT) Prealbumin 26.5 16.0 - 38.0 mg/dL 03/05/2024 2:39 PM CDT [facility] Blood Venipuncture / Unknown 03/05/2024 9:23 AM CDT 03/05/2024 9:23 AM CDT Joseph Ruiz Salvatore CANTOR LAB_1 Performing Organization Address [facility] Phone Number [facility] [address] [place] [address] * Complete Blood Count-No Diff (03/05/2024 9:23 AM CDT) WBC 4.5 3.5 - 10.5 x10(9)/L 03/05/2024 9:31 AM CDT [facility] RBC 4.43 3.90 - 5.03 x10(12)/L 03/05/2024 9:31 AM CDT [facility] Hemoglobin 13.8 12.0 - 15.5 g/dL 03/05/2024 9:31 AM CDT [facility] HCT 41.6 34.9 - 44.5 % 03/05/2024 9:31 AM CDT [facility] MCV 93.9 80.0 - 100.0 fL 03/05/2024 9:31 AM CDT [facility] MCH 31.2 27.6 - 33.3 pg 03/05/2024 9:31 AM CDT [facility] MCHC 33.2 31.5 - 35.2 g/dL 03/05/2024 9:31 AM CDT [facility] RDW 13.3 11.9 - 15.5 % 03/05/2024 9:31 AM CDT [facility] Platelets 220 150 - 450 x10(9)/L 03/05/2024 9:31 AM CDT [facility] Blood Venipuncture / Unknown 03/05/2024 9:23 AM CDT 03/05/2024 9:23 AM CDT Joseph Chase PA-C LAB_1 [facility] [address] [place] [address] * FERRITIN (03/05/2024 9:23 AM CDT) Ferritin 87 9 - 204 ng/mL 03/05/2024 3:06 PM CDT [facility] Blood Venipuncture / Unknown 03/05/2024 9:23 AM CDT 03/05/2024 9:23 AM CDT Joseph Chase PA-C LAB_1 [facility] [address] [place], [place] [address] * B12 ONLY (03/05/2024 9:23 AM CDT) Vitamin B12 597 213 - 816 pg/mL 03/05/2024 3:13 PM CDT [facility] Blood Venipuncture / Unknown 03/05/2024 9:23 AM CDT 03/05/2024 9:23 AM CDT Joseph Chase PA-C LAB_1 Performing Organization Address [facility] de Phone Number [facility] [address] * IRON PROFILE (IRON,TIBC,%SAT.(CALC)) (03/05/2024 9:23 AM CDT) Iron 98 50 - 170 mcg/dL 03/05/2024 2:40 PM CDT [facility] Transferrin 245 180 - 382 mg/dL 03/05/2024 2:40 PM CDT [facility] TIBC, Calculated 306 240 - 450 mcg/dL 03/05/2024 2:40 PM CDT [facility] % Saturation, Calculated 32 10 - 50 % 03/05/2024 2:40 PM CDT [facility] Blood Venipuncture / Unknown 03/05/2024 9:23 AM CDT 03/05/2024 9:23 AM CDT Joseph Chase PA-C LAB_1 Performing Organization Address [facility] Co de Phone Number [facility] [address] * Calcium (03/05/2024 9:23 AM CDT) Pathologist [facility] Calcium 9.7 8.4 - 10.4 mg/dL 03/05/2024 3:19 PM CDT [facility] Blood Venipuncture / Unknown 03/05/2024 9:23 AM CDT 03/05/2024 9:23 AM CDT Joseph BRONSON-Rosales LAB_1 Performing Organization Address [facility]/ZIP Co de Phone Number [facility] [address] [place] [address] * (ABNORMAL) Lipid Panel and Direct LDL(If Needed) (11/02/2020 10:28 AM CDT) Cholesterol 176 0 - 199 mg/dL 11/02/2020 12:11 PM CDT [facility] Triglyceride 150(H) <=149 mg/dL 11/02/2020 12:11 PM CDT [facility] HDL Cholesterol 55 >=40 mg/dL 12:11 PM CDT [facility] LDL, Calculated 91 <130 mg/dL 12:11 PM CDT [facility] Non HDL Chol, Calculated 121 mg/dL 11/02/2020 12:11 PM CDT [facility] Cholesterol/HDL Ratio 3.2 11/02/2020 12:11 PM CDT [facility] Hours Fasting 12 11/02/2020 12:11 PM CDT [facility] Blood Venipuncture / Unknown 11/02/2020 10:28 AM CDT 11/02/2020 10:33 AM CDT Joseph Chase PA-C LAB_1 [facility] [address] [place], [place] [address] * Hgb A1c (11/02/2020 10:28 AM CDT) Hemoglobin A1C 5.4 <=5.6 % 11/02/2020 2:00 PM CDT [facility] Blood Venipuncture / Unknown 11/02/2020 10:28 AM CDT 11/02/2020 10:33 AM CDT Joseph Chase PA-C LAB_1 [facility] [address] [address] [phone] from Last 3 Months or Most Recently Relevant to Health Maintenance Advance Directives * Full Code (Latest Code Status on File) Date Activated Date Inactivated Comments 06/19/2022 3:26 PM 06/20/2022 3:46 PM * Full Code Date Activated Date Inactivated Comments 02/19/2022 2:01 PM 02/20/2022 1:42 PM Care Teams Slip Presser Relationship Specialty Start Date End Date Rene Bustillo MD [address] [place] [address] PCP - General Family Practice 06/19/22
--- OUTSIDE RECORDS SUMMARY | 2024-03-11 08:12 | XMS_ITS | Encounter Summary ---
[facility] Organization [facility] Address [address], [place] [address] Care Team Providers Care Clinical Application Consultant Name Role Phone Rene Bustillo MD Primary Care Provider [phone] Reason for Referral * Consult/Transfer Care (Routine) - New Request Specialty Diagnoses / Procedures Referred By Adarsh marcelo Referred To Contact Diagnoses Insomnia, unspecified type Joseph Chase PA-C [address] [facility] [address] [place] [address] Referral ID Status Reason Start Date Expiration Date V isits Requested Visits Authorized [id number] New Request 03/10/2024 06/09/2025 1 1 Scheduling Instructions Your clinician has recommended an appointment with [facility]. This is not a sleep study order and must first be reviewed by a sleep specialist to determine the next steps. The review process looks at multiple factors including your insurance requirements, personal health history, and [employer] guidelines. This order will be reviewed within 1 business day and sent to scheduling for one of the following appointments: - Consultation/Office Visit with a Sleep Medicine Specialist - Consultation/Office Visit with an Insomnia Specialist - Portable/Home Sleep Test If you do not hear from our scheduling staff within the next 7 days, please contact us at [phone] and select option 1. Question Answer Appointment Urgency Non-Urgent Sleep Service Requested CBT for Insomnia Insomnia Symptoms Difficulty Staying Asleep Comments Comments: Age/Sex: 58 y.o. / female Height: 03/10/24 : 1.676 m (5' 6) Weight: 09/17/24 : 93.9 kg (207 lb) BMI: Estimated body mass index is 33.41 kg/m?? as calculated from the following: Height as of this encounter: 1.676 m (5' 6). Weight as of this encounter: 93.9 kg (207 lb). Reason for Visit * Reason Comments Sleeve Surg Followup Video Visit Encounter Details Date Type Department Care Team (Late st Contact Info) Description 03/10/2024 9:40 AM CDT Telemedicine [facility] [address] [facility] [address] [place], [place] [id number] Joseph Chase PA-C [address] [facility] [address] [place], [place] [id number] Insomnia, unspecified type (Primary Dx) Social History Tobacco Use Types Packs/Day Years [...] - Inhaled Oxygen Concentration - - Weight 93.9 kg (207 lb) 03/10/2024 8:17 AM CDT Height 167.6 cm (5' 6) 03/10/2024 8:17 AM CDT Body Mass Index 33.41 03/10/2024 8:17 AM CDT documented in this encounter Nursing Notes * Meche Hand, RN - 03/10/2024 9:40 AM CDT Summary:Naltrexone, patient increase to 0.5 tab BID. Still not seeing any improvement with food cravings. Typically craving chocolate/sweets . Patient is currently having long periods of time betweenmeals, approximately 6-7 hours. Patient reports not currently feeling like she is sleeping and feeling well rested. Is having trouble sleeping, reports waking after a few hours. Recommendations: 1.Work on stopping scrolling to go to sleep a little earlier, possibly meet with sleep medicine to discuss insomnia 2. Plan high protein snacks between lunch and dinner and dinner and bed due to 6-7 hr stretch Last Wt (provider visit): 200lb (10/22/23) Current Wt:207 lb PHQ9: 2 documented in this encounter Plan of Treatment Upcoming Encounters Date Type Department Care Team (Late st Contact Info) Description 05/28/2024 9:00 AM MULTIMEDIA SERVICES MANAGER Telemedicine [facility] [address] [facility] [address] [place] [address] Ramya Porras RDN, [address] [place], [place] [id number] 08/18/2024 9:20 AM MULTIMEDIA SERVICES MANAGER Telemedicine [facility] [address] [facility] [address] [place] [address] Joseph Chase PA-C [address] [facility] [address] [place], [place] [phone] Scheduled Referrals Name Type Priority Associated Diagnoses Orde r Schedule Sleep Services Referral Routine Insomnia, unspecified type Ordered: 03/10/2024 documented as of this encounter Visit Diagnoses Diagnosis Insomnia, unspecified type- Primary documented in this encounter Care Teams Clinical Application Consultant Relationship Specialty Start Date End Date Rene Bustillo MD [address] [place] [address] PCP - General Family Practice 06/19/22 documented as of this encounter
--- OUTSIDE RECORDS SUMMARY | 2024-03-11 08:12 | XMS_ITS | Encounter Summary ---
Author Organization [facility] Address [address], [place] [address] Care Team Providers Care Solid Waste Disposal Manager Name Role Phone Rene Bustillo MD Primary Care Provider [phone] Reason for Visit * Reason Comments QUESTIONS, GENERAL Entered automaticall y based on patient selection in [facility]. Encounter Details Date Type Department Care Team ([facility] Contact Info) Description 02/12/2024 1:40 PM CDT E-Visit [facility] [address] [facility] [address] [place], [place] [address] Joseph Chase PA-C [address] [place] [address] [place] [id number] Chief Comp: QUESTIONS, GENERAL Social History Tobacco Use Types Packs/Day Years [...] Upcoming Encounters Date Type Department Care Team ([facility] Contact Info) Description 05/28/2024 9:00 AM MERCHANDISE PROCESSOR Telemedicine [facility] [address] [facility] [address] [place], [place] [address] Ramya Porras RDN, LD [address] [place], [place] [address] 08/18/2024 9:20 AM MERCHANDISE PROCESSOR [facility] [address] [facility] [place], [place] [phone] Joseph Chase PAMarco AntonioC [address] [facility] [address] [place], [place] [address] documented as of this encounter Visit Diagnoses Not on filedocumented in this encounter Care Teams Solid Waste Disposal Manager Relationship Specialty Start Date End Date Rene Bustillo MD [address] [place] [address] PCP - General Family Practice 06/19/22 documented as of this encounter
--- OUTSIDE RECORDS SUMMARY | 2024-03-11 08:13 | XMS_ITS | Clinical Summary ---
Author Organization [facility] Address [place], [place] [address] Care Team Providers Care Keg Varnisher Name Role Phone Rene Bustillo MD Primary Care Provider [phone] Allergies No known active allergies Medications Medication Sig Dispensed Refills Start Date End Date Status naltrexone-buprop ion 8-90 mg (CONTRAVE) 8-90 mg Extended-Release tablet Take by mouth. 0 08/16/2016 Active naproxen (NAPROSYN) 500 mg tablet 1 01/31/2018 Active losartan (COZAAR) 25 mg tabletIndications :Ascending aorta dilatation (HC),HTN (hypertension) Take 1 tablet by mouth once daily. 30 tablet 3 10/17/2018 Active magnesium oxide (MAG-OX 400) 400 mg tablet 05/24/2021 Active multivitamin (MVI) tablet Active acetaminophen (TYLENOL) 325 mg tablet Take Tylenol 650 mg four times per day - once when you get up, once before you go to bed, once between when you would normally have breakfast and lunch, and the last between a normal lunch and dinner. 02/19/2022 Active cholecalciferol, Vitamin D3, 2,000 unit tablet Take 2,000 units by mouth. Active tamoxifen (NOLVADEX) 20 mg tablet Take 20 mg by mouth once daily. Active zolpidem (AMBIEN) 5 mg tablet Take 5 mg by mouth one time if needed. Active triamterene-hydro chlorothiazide, 37.5-25 mg, (DYAZIDE) 37.5-25 mg capsule 1 12/30/2017 03/05/2024 Discontinued (*Med complete/Reg imen complete/Lev el of care change) Active Problems Problem Noted Date Diagnosed Date Bicuspid aortic valve 10/07/2020 Ascending aortic aneurysm 10/07/2020 HTN (hypertension) 10/07/2020 Morbid obesity due to excess calories 10/07/2020 Encounters Date Type Department Care Team Description 03/05/2024 8:30 AM CDT Office Visit [facility] [address] [place] [address] Murray Matias MD Arrived from Last 3 Months Immunizations Name Administration Dates Next Due Influenza A (H1N1), Inactivated 06/10/2009 Influenza Virus, Unspecified 06/05/2013 Influenza, IIV3 (Age 6-35 mos) 04/26/2008 Influenza, IIV3 (Age >=3 years) 04/25/20 11,04/18/2010,03/21/2009,04/10/2007, 04/12/2006,04/19/2003 Influenza, IIV4 04/17/2016 Influenza, IIV4 (=>6mos) MDV 04/10/2017,04/28/20 15,04/29/2014 Td (Age >=7 Years) 07/06/2003,10/26/2002 Tdap 05/13/2012 Family History Medical History Relation Name Comments Stroke Brother Skin cancer Father Cancer-breast Maternal Grandmother Rheum arthritis Mother Thyroid Disease Mother Thyroid Disease Sister Relation Name Status Comments Brother Alive Father Alive Maternal Grandmother Mother Alive Sister Social History Tobacco Use Types Packs/Day Years Used Date Smoking Tobacco: Former Smokeless Tobacco: Never Alcohol Use Standard Drinks/Week Comments Yes 0 (1 standard drink = 0.6 oz pur e alcohol) social PHQ-2 Answer Date Recorded PHQ-2 Score 0 08/25/2018 Social Connections Answer Date Recorded Frequency of Communication with Friends and Fami ly Not on file 12/07/2022 Financial Resource Strain Answer Date R ecorded Difficulty of Paying Living Expenses Not on file 06/24/2021 Difficulty of Paying Living Expenses Not on file 06/24/2021 Sex and Gender Information Value Date Recorded Sex Assigned at Not on file Gender Identity Not on file Sexual Orientation Not on file Obstetrics History Para Term AB IAB SAB Ectopic Multiple Livin g Live Births 3 3 3 0 0 3 Date Outcome GA Total Labor Labor/2nd/3rd Weight Sex Type Anes PTL Zohreh A1 A5 Name Clin Term Term Term Last Filed Vital Signs Vital Sign Reading Time Taken Comments Blood Pressure 110/72 12/31/2022 6:05 PM CDT Pulse 74 12/31/2022 6:05 PM CDT Temperature 36.6 ??C (97.8 ??F) 12/31/2022 6:05 PM CD T Respiratory Rate 22 02/10/2018 8:58 AM CDT Oxygen Saturation 98% 12/31/2022 6:05 PM CDT Inhaled Oxygen Concentration - - Weight 89.7 kg (197 lb 12.8 oz) 12/31/2022 6:05 PM CDT Height 170 cm (5' 6.93) 10/07/2020 9:28 AM CDT Body Mass Index 31.05 10/07/2020 9:28 AM CDT Plan of Treatment Health Maintenance Due Date Last Done Comments HIV for age 15-65 1980 Hepatitis C screening for age 18-79 1983 Zoster (shingles) series for age 50+ (1 of 2) 1984 Lipids for age 45-75 2010 Depression screening for age 12+ 02/10/2019 02/10/2018 Mammogram for age 45-75 09/23/2019 09/23/19 19, 09/17/2017, 08/13/2016 BMI (ht and wt on same day) for age 18+ 10/07/2021 10/07/2020, 02/10/2018 Tetanus booster 05/13/2022 05/13/2012, 04/25 (Completed outside of [facility]), 07/06/2003, Additional history exists COVID-19 vaccine series (2022- season) 2024 04/27/2022, 07/23/2021, 01/11/2021, Additional history exists Influenza for age 50-64 02/23/2024 04/10/20 17, 04/17/2016, 04/28/2015, Additional history exists Pap test for age 21-65 12/18/2024 , 12/18/2021, 08/10/2019, Additional history exists Colonoscopy through age 75 05/30/202605/30, 07/08/2015 (Completed outside of [facility]) Tdap Completed 05/13/2012, 04/25 ([facility] Pneumococcal series for age 6-64 Aged Out No longer eligible based on patient's age to complete this topic Procedures Procedure Name Priority Date/Time Associated Diagnosis Comments HPV HIGH RISK Routine 12/18/2021 9:30 AM CDT XR MAMMO BILAT SCREENING Routine 09/22/2018 9:05 AM CDT Visit for screening mammogram SCAN-COLONOSCOPY 05/30/2016 12:0 0 AM PRODUCTION MACHINE SHOP SUPERVISOR from Last 3 Months or Most Recently Relevant to Health Maintenance Results * HPV HIGH RISK (12/18/2021 9:30 AM CDT) TYPE 16 Negative Negative 12/20/2021 1:47 PM CDT [facility] TYPE 18 Negative Negative 12/20/2021 1:47 PM CDT [facility] OTHER HIGH RISK TYPES Negative Negative 12/20/2021 1:47 PM CDT [facility] Other (Cervical/Vagina l) 12/18/2021 9:30 AM CDT 12/18/2021 5:57 PM CDT Narrative [facility] - 12/20/2021 1:47 PM CDT HPV types 16, 18, 31, 33, 35, 39, 45, 51, 52, 56, 58, 59, 66 and 68 DNA were undetectable or below the pre-set threshold. Methodology: Real Time Translation Octavio 4800 HPV Test Rene Bustillo MD [facility] [address] [place] [address], * XR MAMMO BILAT SCREENING (09/22/2018 9:05 AM CDT) Anatomical Region Laterality Modality BREASTS, Breast Left, Breast Right Bilateral Mammography Impressions 09/22/2018 2:18 PM CDT ??There is no radiographic evidence for malignancy. ??Recommend annual mammograms. A lay language report of this examination will be provided to the patient. MAMMOGRAM ASSESSMENT: ??ACR 1 Negative Narrative 09/22/2018 2:18 PM CDT XR MAMMO BILAT SCREENING [[id number]] CLINICAL HISTORY: ??This is an asymptomatic 53 y.o. patient. INDICATION FOR EXAM: Mammogram Screening. TECHNIQUE: CC & MLO views were obtained. ??This digital study was evaluated with the assistance of Computer-Aided Detection. COMPARISON FILM: Yes 09/17/17 [facility] FINDINGS: ??Mammographically, the breast tissue has scattered fibroglandular densities. ??There are no dominant masses, suspicious micro calcifications or areas of architectural distortion. Rene Bustillo MD MAMMO * SCAN-COLONOSCOPY (05/30/2016 12:00 AM PRODUCTION MACHINE SHOP SUPERVISOR) Scanner OTHER from Last 3 Months or Most Recently Relevant to Health Maintenance Care Teams Keg Varnisher Relationship Specialty Start Date End Date Rene Bustillo MD [address] [place] [address] PCP - General Family Practice 09/19/18
--- NOTE | 2024-03-11 08:15 | CRLHL7_ITS ---
For Patients: As a result of the Century Cures Act, medical imaging exams and procedure reports are released immediately into your electronic medical record. You may view this report before your referring provider. If you have questions, please contact your health care provider. BILATERAL SCREENING MAMMOGRAM WITH COMPUTER-AIDED DETECTION AND TOMOSYNTHESIS TECHNIQUE: CC and MLO views were obtained. These mammographic images have been obtained using full-field digital technique. These mammographic images were interpreted with the benefit of computer-aided detection. Breast Tomosynthesis was used in this interpretation. COMPARISON FILM: 03/04/23, 03/01/22, 02/23/21. FINDINGS: The breasts are almost entirely fatty. IMPRESSION: There is no radiographic evidence for malignancy. ASSESSMENT: BI-RADS Category 2: Benign RECOMMENDATION: Routine screening mammogram in 1 year. A lay language report of this examination will be provided to the patient. Noman Ag M.D. Diagnostic Radiologist [email or web address] SP/Dictated by: Noman Ag MD @ 03/11/2024 9:50:00 AM (Electronically Signed)
== END 2024-03-11 08:10 | disposition home or self-care (01) ==
LOC: MAMMO 08:10
PROVIDERS: PCP Family Medicine; Visit Provider Internal Medicine Hematology & Oncology
DX: Z12.31 Encounter for screening mammogram for malignant neoplasm of breast (principal)
CPT/HCPCS: 77063; 77067

== ENCOUNTER 2024-04-20 10:17 | Outpatient (CLI) | payer BC, SELFPAY ==
--- OUTSIDE RECORDS SUMMARY | 2024-04-20 10:21 | XMS_ITS | Clinical Summary ---
Author Organization Counts include 234 beds at the [facility] Address [address] [place] [address] Care Team Providers Care Communication Coordinator Name Role Phone Rene Bustillo MD Primary Care Provider [phone] Source Comments You are receiving this document as you are listed as the primary care provider,follow-up provider, or the patient has been referred to you for consultation.This is in compliance with the Medicare and[facility] EHR Incentive Program,which states Providers who transition their patient to another setting of careor provider of care or refers their patient to another provider of care shouldprovide summary care record for each transition of care or referral. [place]umm Allergies Active Allergy Reactions Criticality Noted Date [...] as needed for Sleep. Active Multiple Vitamins-Iron (MULTIVITAMIN/IR ON OR) Active anastrozole (ARIMIDEX) 1 MG tablet Take 1 Tablet (1 mg) by mouth daily. 06/06/2023 Active vitamin B-12 (AKA: CYANOCOBALAMIN) 1000 MCG tablet Take 1 Tablet (1,000 mcg) by mouth once a week. Take sublingually weekly Active topiramate (TOPAMAX) 25 MG tablet Take 1 Tablet (25 mg) by mouth two times a day. 180 Tablet 1 03/10/2024 5 Active naltrexone (REVIA) 50 MG tablet Take 0.5 Tablets (25 mg) by mouth two times a day. 90 Tablet 1 04/04/2024 Active naltrexone (REVIA) 50 MG tablet Take 0.5 Tablets (25 mg) by mouth daily. 45 Tablet 1 10/22/2023 4 Discontinue d(*Med change OR same med OR reorder, new dose/direct ions) Active Problems Problem Noted Date Diagnosed Date Primary osteoarthritis of left ankle 04/09/2022 Overview (04/09/2022): Added automatically from request for surgery [id number] Acquired varus deformity of left ankle 2 Overview (04/09/2022): Added automatically from request for surgery [id number] S/P laparoscopic cholecystectomy 02/19/2022 S/P laparoscopic sleeve [...] Encounters Date Type Department Care Team Description 04/03/2024 Refill [facility] [address] [address] Joseph Chase PA-C Refill (naltrexone) 03/10/2024 9:40 AM CDT Telemedicine [facility] [address] [address] Joseph Chase PA-C Essential (primary) hypertension (HRC) (Primary Dx); Obesity (BMI 30-39.9) (HRC); Insomnia, unspecified type; S/P laparoscopic sleeve gastrectomy; Obstructive sleep apnea 03/06/2024 E-Visit [facility] [address] [address] Mychart, Generic Provider 03/05/2024 10:00 AM CDT Lab Visit [facility] [address] [place] [address] Status post bariatric surgery; Intestinal malabsorption, unspecified type; Personal history of endocrine disorder 02/27/2024 10:00 AM CDT Telemedicine [facility] [address] [address] Ramya Porras RDN, LD Morbid obesity with BMI of 40.0-44.9, adult (HRC) (Primary Dx); Obstructive sleep apnea; Hypertension, unspecified type (HRC); S/P laparoscopic sleeve gastrectomy 02/12/2024 1:40 PM CDT E-Visit [facility] [address] [address] Joseph Chase PA-C Chief Comp: QUESTIONS, GENERAL from Last 3 Months Social History Tobacco Use Types Packs/Day Years Used Date Smoking Tobacco: Former Cigarettes Q uit: 2009 Smokeless Tobacco: Never Alcohol Use Standard Drinks/Week Comments Not Currently 0 (1 standard drink = 0.6 oz pur e alcohol) occasional PHQ-2 Answer Date Recorded PHQ-2 Score 0 03/25/2024 Sex and Gender Information Value Date Recorded Sex Assigned at Not on file Gender Identity Not on file Sexual Orientation Not on file Last Filed Vital Signs Vital Sign Reading Time Taken Comments Blood Pressure 115/80 06/20/2022 10:49 AM POWER SHOVEL OPERATOR HELPER Pulse 70 06/20/2022 10:49 AM POWER SHOVEL OPERATOR HELPER Temperature 36.5 ??C (97.7 ??F) 06/20/2022 10:[address] Respiratory Rate 16 06/20/2022 10:49 AM POWER SHOVEL OPERATOR HELPER Oxygen Saturation 93% 06/20/2022 10:49 AM POWER SHOVEL OPERATOR HELPER Inhaled Oxygen Concentration - - Weight 93.9 kg (207 lb) 03/10/2024 8:17 AM CDT Height 167.6 cm (5' 6) 03/10/2024 8:17 AM CDT Body Mass Index 33.41 03/10/2024 8:17 AM CDT Plan of Treatment Upcoming Encounters Date Type Department Care Team (Late st Contact Info) Description 05/28/2024 9:00 AM POWER SHOVEL OPERATOR HELPER Telemedicine [facility] [address] [facility] [address] [place], [place] [address] Ramya Porras RDN, LD [address] [place], [place] [address] 08/18/2024 9:20 AM POWER SHOVEL OPERATOR HELPER Telemedicine [facility] [address] [facility] [address] [place] [id number] Joseph Chase PA-C [address] [facility] [address] [place] [address] Health Maintenance Due Date Last Done Comments [...] on patient's age to complete this topic RSV Aged Out No longer eligi ble based on patient's age to complete this topic MCV4 Aged Out No longer eligi ble based on patient's age to complete this topic Pneumococcal Aged Out No longer eligi ble based on patient's age to complete this topic Medical Devices Implanted Type Area Change Management Consultant Device Identifier Shelf Expiration Date Model / Serial / Lot Infinity Adaptis Tibial Tray Size 1 Implanted:Qty : 1 on 06/19/2022 by Jabari Rios DPM at [facility] DEVICE Left: ANKLE [employer] 04/17/2030 [id number] / 000 / [id number] Infinity Adaptis Benjamín Dome, Flat Cut Implanted:Qty : 1 on 06/19/2022 by Jabari Rios DPM at [facility] Left: ANKLE [employer] 05/14/2030 [id number] / 000 / [id number] Infinity Everlast Cross-Linked Poly Insert Size 1/1+, H: 8mm Implanted:Qty : 1 on 06/19/2022 by Jabari Rios DPM at [facility] Left: AGUEDA [employer] 11/29/2029 [id number] / 000 / [id number] Procedures Procedure Name Priority Date/Time Associated Diagnosis [...] - 80 ng/mL 03/05/2024 2:56 PM CDT [facility] Blood Venipuncture / Unknown 03/05/2024 9:23 AM CDT 03/05/2024 9:23 AM CDT Joseph Chase PA-C LAB_1 Performing Organization Address [facility] Phone Number [facility] [address] [place] [address] * Intact PTH (03/05/2024 9:23 AM CDT) Intact PTH 31 10 - 100 pg/mL 03/05/2024 2:50 PM CDT [facility] Blood Venipuncture / Unknown 03/05/2024 9:23 AM CDT 03/05/2024 9:23 AM CDT Joseph Chase PA-C LAB_1 Performing Organization Address [facility] Phone Number [facility] [address] [place] [address] * PREALBUMIN (03/05/2024 9:23 AM CDT) Prealbumin 26.5 16.0 - 38.0 mg/dL 03/05/2024 2:39 PM CDT [facility] Blood Venipuncture / Unknown 03/05/2024 9:23 AM CDT 03/05/2024 9:23 AM CDT Joseph Chase PA-C LAB_1 Performing Organization Address [facility] Phone Number [facility] [address] [place] [address] * Complete Blood Count-No Diff (03/05/2024 9:23 AM CDT) WBC 4.5 3.5 - 10.5 x10(9)/L 03/05/2024 9:31 AM CDT [facility] RBC 4.43 3.90 - 5.03 x10(12)/L 03/05/2024 9:31 AM CDT [facility] Hemoglobin 13.8 12.0 - 15.5 g/dL 03/05/2024 9:31 AM CDT [facility] HCT 41.6 34.9 - 44.5 % 03/05/2024 9:31 AM CDT [facility] MCV 93.9 80.0 - 100.0 fL 03/05/2024 9:31 AM CDT [facility] MCH 31.2 27.6 - 33.3 pg 03/05/2024 9:31 AM CDT [facility] MCHC 33.2 31.5 - 35.2 g/dL 03/05/2024 9:31 AM CDT [facility] RDW 13.3 11.9 - 15.5 % 03/05/2024 9:31 AM CDT [facility] Platelets 220 150 - 450 x10(9)/L 03/05/2024 9:31 AM CDT [facility] Blood Venipuncture / Unknown 03/05/2024 9:23 AM CDT 03/05/2024 9:23 AM CDT Joseph Chase PA-C LAB_1 Performing Organization Address City/[facility]/ZIP Co de Phone Number [facility] [address] [place] [address] * FERRITIN (03/05/2024 9:23 AM CDT) Ferritin 87 9 - 204 ng/mL 03/05/2024 3:06 PM CDT [facility] Blood Venipuncture / Unknown 03/05/2024 9:23 AM CDT 03/05/2024 9:23 AM CDT Joseph Chase PA-C LAB_1 [facility] [address] [place], [place] [address] * B12 ONLY (03/05/2024 9:23 AM CDT) Vitamin B12 597 213 - 816 pg/mL 03/05/2024 3:13 PM CDT [facility] Blood Venipuncture / Unknown 03/05/2024 9:23 AM CDT 03/05/2024 9:23 AM CDT Joseph Ruiz Salvatore [facility] LAB_1 Performing Organization Address [facility] de Phone Number [facility] [address] * IRON PROFILE (IRON,TIBC,%SAT.(CALC)) (03/05/2024 9:23 AM CDT) Iron 98 50 - 170 mcg/dL 03/05/2024 2:40 PM CDT [facility] Transferrin 245 180 - 382 mg/dL 03/05/2024 2:40 PM CDT [facility] TIBC, Calculated 306 240 - 450 mcg/dL 03/05/2024 2:40 PM CDT [facility] % Saturation, Calculated 32 10 - 50 % 03/05/2024 2:40 PM CDT [facility] Blood Venipuncture / Unknown 03/05/2024 9:23 AM CDT 03/05/2024 9:23 AM CDT Joseph Ruiz Salvatore [facility]1 Performing Organization Address [facility] de Phone Number [facility] [address] [place], [place] [id number] [place] [address] * Calcium (03/05/2024 9:23 AM CDT) Calcium 9.7 8.4 - 10.4 mg/dL 03/05/2024 3:19 PM CDT [facility] Blood Venipuncture / Unknown 03/05/2024 9:23 AM CDT 03/05/2024 9:23 AM CDT Joseph Chase PA-C LAB_1 Performing Organization Address [facility]/ZIP Co de Phone Number [facility] [address] [place] [address], [facility] * (ABNORMAL) Lipid Panel and Direct LDL(If Needed) (11/02/2020 10:28 AM CDT) Cholesterol 176 0 - 199 mg/dL 11/02/2020 12:11 PM CDT [facility] Triglyceride 150(H) <=149 mg/dL 11/02/2020 12:11 PM CDT [facility] HDL Cholesterol 55 >=40 mg/dL 12:11 PM CDT [facility] LDL, Calculated 91 <130 mg/dL 12:11 PM CDT [facility] Non HDL Chol, Calculated 121 mg/dL 11/02/2020 12:11 PM CDT [facility] Cholesterol/HDL Ratio 3.2 11/02/2020 12:11 PM CDT [facility] Hours Fasting 12 11/02/2020 12:11 PM CDT [facility] Blood Venipuncture / Unknown 11/02/2020 10:28 AM CDT 11/02/2020 10:33 AM CDT Joseph Chase PA-C LAB_1 [facility] [address] * Hgb A1c (11/02/2020 10:28 AM CDT) Hemoglobin A1C 5.4 <=5.6 % 11/02/2020 2:00 PM CDT [facility] Blood Venipuncture / Unknown 11/02/2020 10:28 AM CDT 11/02/2020 10:33 AM CDT Joseph BRONSON-C LAB_1 [facility] [address] [phone] from Last 3 Months or Most Recently Relevant to Health Maintenance Advance Directives * Full Code (Latest Code Status on File) Date Activated Date Inactivated Comments 06/19/2022 3:26 PM 06/20/2022 3:46 PM * Full Code Date Activated Date Inactivated Comments 02/19/2022 2:01 PM 02/20/2022 1:42 PM Care Teams Communication Coordinator Relationship Specialty Start Date End Date Rene Bustillo MD [address] [place] [address] PCP - General Family Practice 06/19/22
--- OUTSIDE RECORDS SUMMARY | 2024-04-20 10:21 | XMS_ITS ---
Author Organization [facility] Address [address], [place] [address] Care Team Providers Care Airborne Electronics Analyst Name Role Phone Rene Bustillo MD Primary Care Provider [phone] Active Problems Problem Noted Date Diagnosed Date Primary osteoarthritis of left ankle 04/09/2022 Overview (04/09/2022): Added automatically from request for surgery [id number] Acquired varus deformity of left ankle Overview (04/09/2022): Added automatically from request for surgery [id number] S/P laparoscopic cholecystectomy 02/19/2022 S/P laparoscopic sleeve [...] treatments are documented for this patient in [facility]. Treatments may have been administered in another system. Lifetime Dose Tracking * Chemical Lifetime Dose Automatic Entry Manual Entr y Fluoro Time 3.4 minutes 3.4 minutes 0 minutes Total Air Kerma 4.57 mGy 4.57 mGy 0 mGy
--- OUTSIDE RECORDS SUMMARY | 2024-04-20 10:21 | XMS_ITS | Encounter Summary ---
Author Organization [facility] Address [address], [place] [address] Care Team Providers Care Continuity Tester Name Role Phone Rene Bustillo MD Primary Care Provider [phone] Encounter Details Date Type Department Care Team (Late Contact Info) Description 03/05/2024 10:00 AM CDT Lab Visit [address] [address] Status post bariatric surgery; Intestinal [...] Upcoming Encounters Date Type Department Care Team ([facility] Contact Info) Description 05/28/2024 9:00 AM SILVERWARE ASSEMBLER Telemedicine [facility] [address] [facility] [address] [place], [place] [address] Ramya Porras, RDN, LD [address] [place] [address] 08/18/2024 9:20 AM SILVERWARE ASSEMBLER Telemedicine [facility] [address] [facility] [address] [place] [address] Joseph Chase PA-C [address] [facility] [address] [place] [address] documented as of this encounter Procedures Procedure [...] - 38.0 mg/dL 03/05/2024 2:39 PM CDT [facility] Blood Venipuncture / Unknown 03/05/2024 9:23 AM CDT 03/05/2024 9:23 AM CDT Joseph Chase PA-C LAB_1 Performing Organization Address [facility] Co de Phone Number [facility] [address] * Calcium (03/05/2024 9:23 AM CDT) Calcium 9.7 8.4 - 10.4 mg/dL 03/05/2024 3:19 PM CDT [facility] Blood Venipuncture / Unknown 03/05/2024 9:23 AM CDT 03/05/2024 9:23 AM CDT Joseph Chase PA-C LAB_1 Performing Organization Address [facility] de Phone Number [facility] [address] [place] [address] * Intact PTH (03/05/2024 9:23 AM CDT) Intact PTH 31 10 - 100 pg/mL 03/05/2024 2:50 PM CDT [facility] Blood Venipuncture / Unknown 03/05/2024 9:23 AM CDT 03/05/2024 9:23 AM CDT Joseph Chase PA-C LAB_1 Performing Organization Address [facility] de Phone Number [facility] [address] * Vitamin D 25-Hydroxy, Total (03/05/2024 9:23 AM CDT) Vitamin D, 25-OH, Total 63 30 - 80 ng/mL 03/05/2024 2:56 PM CDT [facility] Blood Venipuncture / Unknown 03/05/2024 9:23 AM CDT 03/05/2024 9:23 AM CDT Joseph E Gospodarek PA-C LAB_1 Performing Organization Address [facility] Co de Phone Number [facility] [address] * FERRITIN (03/05/2024 9:23 AM CDT) Ferritin 87 9 - 204 ng/mL 03/05/2024 3:06 PM CDT [facility] Blood Venipuncture / Unknown 03/05/2024 9:23 AM CDT 03/05/2024 9:23 AM CDT Joseph Ruiz Salvatore BRONSON-C LAB_1 Performing Organization Address [facility] Phone Number [facility] [address] * IRON PROFILE (IRON,TIBC,%SAT.(CALC)) (03/05/2024 9:23 AM CDT) Pathologist [facility] Iron 98 50 - 170 mcg/dL 03/05/2024 2:40 PM CDT [facility] Transferrin 245 180 - 382 mg/dL 03/05/2024 2:40 PM CDT [facility] TIBC, Calculated 306 240 - 450 mcg/dL 03/05/2024 2:40 PM CDT [facility] % Saturation, Calculated 32 10 - 50 % 03/05/2024 2:40 PM CDT [facility] Blood Venipuncture / Unknown 03/05/2024 9:23 AM CDT 03/05/2024 9:23 AM CDT Joseph Ruiz Salvatore LARRYC LAB_1 Performing Organization Address [facility] de Phone Number [facility] [address] * B12 ONLY (03/05/2024 9:23 AM CDT) Vitamin B12 597 213 - 816 pg/mL 03/05/2024 3:13 PM CDT [facility] Blood Venipuncture / Unknown 03/05/2024 9:23 AM CDT 03/05/2024 9:23 AM CDT Joseph Chase PA-C LAB_1 [facility] [address] [place], [place] [address] * Complete Blood Count-No Diff (03/05/2024 9:23 AM CDT) WBC 4.5 3.5 - 10.5 x10(9)/L 03/05/2024 9:31 AM CDT [facility] RBC 4.43 3.90 - 5.03 x10(12)/L 03/05/2024 9:31 AM T [facility] Hemoglobin 13.8 12.0 - 15.5 g/dL 03/05/2024 9:31 AM T [facility] HCT 41.6 34.9 - 44.5 % 03/05/2024 9:31 AM [facility] MCV 93.9 80.0 - 100.0 fL 03/05/2024 9:31 AM T [facility] MCH 31.2 27.6 - 33.3 pg 03/05/2024 9:31 AM [facility] MCHC 33.2 31.5 - 35.2 g/dL 03/05/2024 9:31 AM [facility] RDW 13.3 11.9 - 15.5 % 03/05/2024 9:31 AM [facility] Platelets 220 150 - 450 x10(9)/L 03/05/2024 9:31 AM [facility] Blood Venipuncture / Unknown 03/05/2024 9:23 AM CDT 03/05/2024 9:23 AM CDT Joseph Chase PA-C LAB_1 [facility] [address] [place] [address], [facility] documented in this encounter Visit Diagnoses Diagnosis Status post bariatric surgery Bariatric surgery status Intestinal malabsorption, unspecified type Personal history of endocrine disorder Personal history of other endocrine, metabolic, and immunity disorders documented in this encounter Care Teams Continuity Tester Relationship Specialty Start Date End Date Rene Bustillo MD [address] [place] [address] PCP - General Family Practice 06/19/22 documented as of this encounter
--- OUTSIDE RECORDS SUMMARY | 2024-04-20 10:21 | XMS_ITS | Encounter Summary ---
Author Organization [facility] Address [address], [place] [address] Care Team Providers Care Guitar Player Name Role Phone Rene Bustillo MD Primary Care Provider [phone] Reason for Referral * Consult/Transfer Care (Routine) - New Request Specialty Diagnoses / Procedures Referred By Adarsh marcelo Referred To Contact Diagnoses Insomnia, unspecified type Joseph Chase PA-C [address] [facility] [address] [place] [address] Referral ID Status Reason Start Date Expiration Date V isits Requested Visits Authorized [id number] New Request 03/10/2024 06/09/2025 1 1 Scheduling Instructions Your clinician has recommended an appointment with [facility]. This is not a sleep study order and must first be reviewed by a sleep specialist to determine the next steps. The review process looks at multiple factors including your insurance requirements, personal health history, and [place] [employer] guidelines. This order will be reviewed within 1 business day and sent to scheduling for one of the following appointments: - Consultation/Office Visit with a Sleep Medicine Specialist - Consultation/Office Visit with an Insomnia Specialist - Portable/Home Sleep Test If you do not hear from our scheduling staff within the next 7 days, please contact us at [phone] and select option 1. Question Answer Appointment [...] Info) Description 03/10/2024 9:40 AM CDT Telemedicine [facility] [address] [facility] [address] [place], [place] [id number] Joseph Chase PA-C [address] [facility] [address] [place], [place] [id number] Essential (primary) hypertension (HRC) (Primary Dx); Obesity (BMI 30-39.9) (HRC); Insomnia, unspecified type; S/P laparoscopic sleeve gastrectomy; Obstructive sleep apnea Social History Tobacco Use Types Packs/Day Years [...] 8:17 AM CDT documented in this encounter Progress Notes * Joseph Chase PA-C - 03/10/2024 9:40 AM CDT Bariatric Surgery Post-Operative Follow Up DATE OF VISIT: 03/10/2024 This visit was conducted as telehealth visit using a synchronous audiovideo link. SUBJECTIVE: This 58 y.o. year-old female with chronic medical problems including LINH, HTN, ascending aorta dilatation, bicuspid AV presents for routine postoperative followup status post Laparoscopic Vertical Sleeve. Patient is tolerating naltrexone 25 mg BID. She found medication helpful reducing cravings initially but no longer finds medication effective. She has also been impacted by shortage of medication. Patient is not sleeping well and feels it may be related to changing her cancer medication. She can fall asleep but wakes up a few hours later. She is using her CPAP consistently. Bariatric Weight History and Calculations Weight History Highest Adult Weight: 265 lb Preferred Weight: 170 lb Lowest Adult Weight: 170 lb At what weight would you not be disappointed?: 200 lb Starting Weight: 265 lb Current Weight: 207 lb Height (in): 66 Weight Calculations Excess Weight: 126 lb Current Weight Loss: 58 lb Goal Weight: 139 lb Starting BMI: 42.86 Percent Exess Weight Loss: 46 Current BMI: 33.48 Percent Totoal Body Weight Loss: 22 Date of surgery 02/19/2022. Previous medication trials for weight loss (or medications with the side effect of weight loss) include the following: Naltrexone Bupropion Food intolerances: none Focuses on eating protein at most meals: Yes Fluid intake averages >64 oz oz per day. What are you doing for exercise?: Walking, Other Physical activity: Water Aerobics She reports taking MVI, B12 SL weekly, Vitamin D and Calcium supplements as prescribed. REVIEW OF SYSTEMS: Patient is experiencing the following symptoms/problems: Emotional Eating, Increased Hunger PAST MEDICAL HISTORY: No past medical history on file. MEDICATIONS: acetaminophen (TYLENOL) 325 MG tablet, Take Tylenol 650 mg four times per day - once when you get up, once before you go to bed, once between when you would normally have breakfast and lunch, and thelast between a normal lunch and dinner., Disp: , Rfl: anastrozole (ARIMIDEX) 1 MG tablet, Take 1 Tablet (1 mg) by mouth daily., Disp: , Rfl: cholecalciferol (VITAMIND3) 50 MCG (2000 UT) tablet, Take 2 Tablets (4,000 Units) by mouth daily., Disp: , Rfl: losartan (COZAAR) 50 MG tablet, Take 0.5 Tablets (25 mg) by mouth daily., Disp: , Rfl: magnesium oxide (MAGOX 400) 400 (241.3 Mg) MG tablet, , Disp: , Rfl: Multiple Vitamins-Iron (MULTIVITAMIN/IRON OR), , Disp: , Rfl: naltrexone (REVIA) 50 MG tablet, Take 0.5 Tablets (25 mg) by mouth daily., Disp: 45 Tablet, Rfl: 1 senna (SENOKOT) 8.6 MG tablet, Take 1 Tablet by mouth daily as needed for Constipation (Mild Constipation)., Disp: 30 Tablet, Rfl: 1 tamoxifen (NOLVADEX) 20 MG tablet, Take 1 Tablet (20 mg) by mouth daily. (Patient not taking: Reported on 06/10/2023), Disp: , Rfl: vitamin B-12 (AKA: CYANOCOBALAMIN) 1000 MCG tablet, Take 1 Tablet (1,000 mcg) by mouth once a week.Take sublingually weekly, Disp: , Rfl: zolpidem (AMBIEN) 5 MG tablet, Take 1 Tablet (5 mg) by mouth at bedtime as needed for Sleep., Disp:, Rfl: No current facility-administered medications on file as of 03/10/2024. ADR/ALLERGIES: Nsaids SOCIAL HISTORY: Social History Socioeconomic History Marital status: Spouse name: Not on file Number of children: Not on file Years of education: Not on file Highest education level: Not on file Occupational History Occupation: medical device sales Tobacco Use Smoking status: Former Current packs/day: 0.00 Types: Cigarettes Quit date: 2009 Years since quittin.7 Smokeless tobacco: Never Vaping Use Vaping status: Never Used Substance and Sexual Activity Alcohol use: Not Currently Alcohol/week: 0.0 - 1.0 standard drinks of alcohol Comment: occasional Drug use: Never Sexual activity: Yes Partners: Male control/protection: None, Surgical Comment: tubal ligation Other Topics Concern Not on file Social History Narrative Not on file Social Determinants of Health Financial Resource Strain: High Risk (06/24/2021) Received from [facility], [facility] Financial Resource Strain Difficulty of Paying Living Expenses: Not on file Difficulty of Paying Living Expenses: Not on file Food Insecurity: No Food Insecurity (06/13/2021) Received from [facility] Hunger Vital Sign Worried About Running Out of Food in the Last Year: Never true Ran Out of Food in the Last Year: Never true Transportation Needs: No Transportation Needs (06/13/2021) Received from [facility] PRAPARE - Transportation Lack of Transportation (Medical): No Lack of Transportation (Non-Medical): No Physical Activity: Insufficiently Active (06/13/2021) Received from [facility] Exercise Vital Sign Days of Exercise per Week: 2 days Minutes of Exercise per Session: 20 min Stress: No Stress Concern Present (06/13/2021) Received from [facility] [place] [employer] - Occupational Stress Questionnaire Feeling of Stress : Only a little Social Connections: Unknown (12/07/2022) [facility] Social Connections Frequency of Communication with Friends and Family: Not on file Intimate Partner Violence: Not At Risk (06/13/2021) Received from [facility] Humiliation, Afraid, Rape, and Kick questionnaire Fear of Current or Ex-Partner: No Emotionally Abused: No Physically Abused: No Sexually Abused: No Housing Stability: Low Risk (06/13/2021) Received from [facility] Housing Stability Vital Sign Unable to Pay for Housing in the Last Year: No Number of Places Lived in the Last Year: 1 In the last 12 months, was there a time when you did not have a steady place to sleep or slept in [facility] (including now)?: No Patient Employment Employer: Address: City: State: Zip: Phone: Occupation: Employee?: No OBJECTIVE: Ht 1.676 m (5' 6) Wt 93.9 kg (207 lb) BMI 33.41 kg/m?? BMI: Estimated body mass index is 33.41 kg/m?? as calculated from the following: Height as of this encounter: 1.676 m (5' 6). Weight as of this encounter: 93.9 kg (207 lb). Vital Signs: There were no vitals taken for this visit. (Vitals not measured in clinic due to nature of telehealth visit). General: NAD Respiratory: No distress is noted Psych: No evidence of overt anxiety or depression. Skin: No rashes on exposed skin PHQ-9 is stable. Will continue to monitor for post-operative changes in mood. Question 9 was 0. LABORATORY STUDIES: Latest Reference Range & Units 03/05/24 09:23 Calcium 8.4 - 10.4 mg/dL 9.7 WBC 3.5 - 10.5 x10(9)/L 4.5 RBC 3.90 - 5.03 x10(12)/L 4.43 Hemoglobin 12.0 - 15.5 g/dL 13.8 HCT 34.9 - 44.5 % 41.6 MCV 80.0 - 100.0 fL 93.9 MCH 27.6 - 33.3 pg 31.2 MCHC 31.5 - 35.2 g/dL 33.2 RDW 11.9 - 15.5 % 13.3 Platelets 150 - 450 x10(9)/L 220 Prealbumin 16.0 - 38.0 mg/dL 26.5 Intact PTH 10 - 100 pg/mL 31 Vitamin D,25 Hydroxy 30 - 80 ng/mL 63 Vitamin B12 213 - 816 pg/mL 597 Ferritin 9 - 204 ng/mL 87 Iron 50 - 170 mcg/dL 98 TIBC 240 - 450 mcg/dL 306 % Saturation, calc. 10 - 50 % 32 Transferrin 180 - 382 mg/dL 245 ASSESSMENT: We will continue to treat the patient's obesity, obesity-associated medical conditions, and conditions exacerbated by or contributing to weight gain by aggressive management of weight: ICD-10-CM 1. Essential (primary) hypertension ([facility]) I10 2. Obesity (BMI 30-39.9) ([facility]) E66.9 3. Insomnia, unspecified type G47.00 Sleep Services 4. S/P laparoscopic sleeve gastrectomy Z98.84 5. Obstructive sleep apnea G47.33 PLAN: No laboratory studies needed today. Patient will continue to work toward achieving 150 minutes of physical activity per week. The patient is advised to continue taking supplements. Trial topiramate 25 mg BID - side effects discussed Can continue naltrexone 25 mg BID at her discretion Sleep CBT Consult for insomnia Recommendations: 1.Work on stopping scrolling to go to sleep a little earlier, possibly meet with sleep medicine to discuss insomnia 2. Plan high protein snacks between lunch and dinner and dinner and bed due to 6-7 hr stretch Return to the clinic in 3 months, sooner p.r.n. problems or concerns. Patient is especially encouraged to return to the clinic if failing to lose further weight. At the beginning of the visit, I discussed with the patient/parent that this visit is a telehealth visit that will be billed to their insurance. I reviewed potential benefits, risks, and confidentiality of telehealth visits. We made a contingency plan in the event of technical problems. I explainedthat the appropriateness of telehealth visits is determined by the provider and that patient may need to be seen in clinic in the future. They consented to proceed. This service was provided via telehealth and conducted using a synchronous audiovideo link. Patient location: home Provider location: clinic Total time for visit was 40 minutes including [id number] time spent reviewing medical records, counseling, documentation, placing orders, and coordination of care. Portion of lifestyle coachingand counseling completed by bariatric nurse clinician. Joseph Chase PA-C documented in this encounter Nursing Notes * Meche Hand RN - 03/10/2024 9:40 AM CDT Summary:Naltrexone, [...] st Contact Info) Description 05/28/2024 9:00 AM PRODUCT DEVELOPMENT SCIENTIST Telemedicine [facility] [address] [facility] [address] [place] [address] Ramya Porras RDN, LD [address] [place] [address] 08/18/2024 9:20 AM PRODUCT DEVELOPMENT SCIENTIST Telemedicine [facility] [address] [facility] [place], [place] [address] Joseph Chase PA-C [address] [facility] [address] [place], [place] [address] Scheduled Referrals Name Type Priority Associated Diagnoses Orde r Schedule Sleep Services Referral Routine Insomnia, unspecified type Ordered: 03/10/2024 documented as of this encounter Visit Diagnoses Diagnosis Essential (primary) hypertension (HRC)- Primary Unspecified essential hypertension Obesity (BMI 30-39.9) (HRC) Obesity, unspecified Insomnia, unspecified type S/P laparoscopic sleeve gastrectomy Obstructive sleep apnea Obstructive sleep apnea (adult) (pediatric) documented in this encounter Care Teams Guitar Player Relationship Specialty Start Date End Date Rene Bustillo MD [address] [place] [address] PCP - General Family Practice 06/19/22 documented as of this encounter
--- OUTSIDE RECORDS SUMMARY | 2024-04-20 10:21 | XMS_ITS | Encounter Summary ---
Author Organization [facility] Address [address], [place] [address] Care Team Providers Care Dynamics Ax Solution Architect Name Role Phone Rene Bustillo MD Primary Care Provider [phone] Reason for Visit * Reason Onset Date Comments Refill 04/03/2024 naltrexone Encounter Details Date Type Department Care Team (Late st Contact Info) Description 04/03/2024 Refill [facility] [address] [facility] [address] [place], [place] [phone] Joseph Chase PA-C [address] [facility] [address] [place], [place] [phone] Refill (naltrexone) Social History Tobacco Use Types Packs/Day Years [...] on file documented as of this encounter Nursing Notes * Luann Ocampo RN - 04/03/2024 9:20 AM CDT Medication refill request Date last visit:03/10/24 Future appointment is scheduled on 08/18/24. Follow up requested by provider: note still pending Since last seen she has no showed or cancelled the following appointments: none Labs are up to date Yes Medication refill request routed to clinician for review. Medication Detail Medication Quantity Refills Start End naltrexone (REVIA) 50 MG tablet 45 Tablet 1 10/22/2023 -- Sig: Take 0.5 Tablets (25 mg) by mouth daily. Route: Oral Class: E-Prescribing Order #: [id number] documented in this encounter Plan of Treatment Upcoming Encounters Date Type Department Care Team (Late st Contact Info) Description 05/28/2024 9:00 AM MEDIA MARKETING COORDINATOR Telemedicine [facility] [place] [address] [facility] [address] [place] [id number] Ramya Porras RDN, LD [address] [place], [place] [address] 08/18/2024 9:20 AM MEDIA MARKETING COORDINATOR Telemedicine [facility] [place] [address] [facility] [address] [place], [place] [address] Joseph Chase PA-C [address] [facility] [address] [place] [id number] documented as of this encounter Visit Diagnoses Not on filedocumented in this encounter Care Teams Dynamics Ax Solution Architect Relationship Specialty Start Date End Date Rene Bustillo MD [address] [place] [address] PCP - General Family Practice 06/19/22 documented as of this encounter
--- OUTSIDE RECORDS SUMMARY | 2024-04-20 10:21 | XMS_ITS | Clinical Summary ---
Author Organization [facility] Address [place], [place] [address] Care Team Providers Care Molding Engineer Name Role Phone Rene Bustillo MD Primary Care Provider [phone] Allergies No known active allergies Medications Medication Sig Dispensed Refills Start Date End Date Status naltrexone-bupropion 8-90 mg (CONTRAVE) 8-90 mg Extended-Release tablet Take by mouth. 0 08/16/2016 Active naproxen (NAPROSYN) 500 mg tablet 1 01/31/2018 Active losartan (COZAAR) 25 mg tabletIndications:As cending aorta dilatation (HC),HTN (hypertension) Take 1 tablet [...] by mouth one time if needed. Active Active Problems Problem Noted Date Diagnosed Date Bicuspid aortic valve 10/07/2020 Ascending aortic aneurysm 10/07/2020 HTN (hypertension) 10/07/2020 Morbid obesity due to excess calories 10/07/2020 Encounters Date Type Department Care Team Description 03/05/2024 8:30 AM CDT Office Visit [facility] [address] [place] [address] Murray Matias MD from Last 3 Months Immunizations Name Administration [...] 02/10/2019 02/10/2018 Mammogram for age 45-75 09/23/2019 09/23/19, 09/17/2017, 08/13/2016 BMI (ht and wt on same day) for age 18+ 10/07/2021 10/07/2020, 02/10/2018 Tetanus booster 05/13/2022 05/13/2012, 04/25 (Completed outside of [facility]), 07/06/2003, Additional history exists COVID-19 vaccine series ( season) 2024 04/27/2022, 07/23/2021, 01/11/2021, Additional history exists Influenza for age 50-64 02/23/2024 04/10/20 17, 04/17/2016, 04/28/2015, Additional history exists Pap test for age 21-65 12/18/2024 , 12/18/2021, 08/10/2019, Additional history exists Colonoscopy through age 75 05/30/202605/30, 07/08/2015 (Completed outside of [facility]) Tdap Completed 05/13/2012, 04/25 (Completed outside of [facility]) Pneumococcal series for age 6-64 Aged Out No longer eligible based on patient's age to complete this topic Procedures Procedure Name Priority Date/Time Associated Diagnosis Comments HPV HIGH RISK Routine 12/18/2021 9:30 AM CDT XR MAMMO BILAT SCREENING Routine 09/22/2018 9:05 AM CDT Visit for screening mammogram SCAN-COLONOSCOPY 05/30/2016 12:0 0 AM CAR TESTER from Last 3 Months or Most Recently Relevant to Health Maintenance Results * HPV HIGH RISK (12/18/2021 9:30 AM CDT) TYPE 16 Negative Negative 12/20/2021 1:47 PM [address] [facility] TYPE 18 Negative Negative 12/20/2021 1:47 PM CDT [facility] OTHER HIGH RISK TYPES Negative Negative 12/20/2021 1:47 PM CDT [facility] Other (Cervical/Vagina l) 12/18/2021 9:30 AM CDT 12/18/2021 5:57 PM CDT Narrative [facility] - 12/20/2021 1:47 PM CDT HPV types 16, 18, 31, 33, 35, 39, 45, 51, 52, 56, 58, 59, 66 and 68 DNA were undetectable or below the pre-set threshold. Methodology: [employer] Octavio 4800 HPV Test Rene Bustillo MD MICROBIOLOGY [facility] [address] [place] [address], * XR MAMMO BILAT SCREENING (09/22/2018 9:05 AM CDT) Anatomical Region Laterality Modality BREASTS, Breast Left, Breast Right Bilateral Mammography Impressions 09/22/2018 2:18 PM CDT ??There is no radiographic evidence for malignancy. ??Recommend annual mammograms. A lay language report of this examination will be provided to the patient. MAMMOGRAM ASSESSMENT: ??ACR 1 Negative Narrative 09/22/2018 2:18 PM CDT XR MAMMO BILAT SCREENING [[id number]] CLINICAL HISTORY: ??This is an asymptomatic 53 y.o. patient. INDICATION FOR EXAM: Mammogram Screening. TECHNIQUE: CC & MLO views were obtained. ??This digital study was evaluated with the assistance of Computer-Aided Detection. COMPARISON FILM: Yes 09/17/17 [facility] DIAGNOSTIC IMAGING FINDINGS: ??Mammographically, the breast tissue has scattered fibroglandular densities. ??There are no dominant masses, suspicious micro calcifications or areas of architectural distortion. Rene Bustillo MD MAMMO * SCAN-COLONOSCOPY (05/30/2016 12:00 AM CAR TESTER) Scanner OTHER from Last 3 Months or Most Recently Relevant to Health Maintenance Care Teams Molding Engineer Relationship Specialty Start Date End Date Rene Bustillo MD [address] [place] [address] PCP - General Family Practice 09/19/18
--- OUTSIDE RECORDS SUMMARY | 2024-04-20 10:21 | XMS_ITS | Encounter Summary ---
[facility] Address [address], [place] [address] Care Team Providers Care Stencil Cutter Machine Name Role Phone Rene Bustillo MD Primary Care Provider [phone] Reason for Visit * Reason Comments Nutrition Counseling Encounter Details Date Type Department Care Team (Late st Contact Info) Description 02/27/2024 10:00 AM CDT Telemedicine [facility] [address] [facility] [address] [place], [place] [address] Ramya Porras, SAMANTHAN, LD [address] [place] [address] Morbid obesity with BMI of [...] st Contact Info) Description 05/28/2024 9:00 AM FLYER BUILDER Telemedicine [facility] [address] [facility] [address] [place], [place] [address] Ramya Porras RDN, LD [address] [place], [place] [address] 08/18/2024 9:20 AM FLYER BUILDER Telemedicine [facility] [place] [address] [facility] [address] [place], [place] [address] Joseph Chase PA-C [address] [facility] [address] [place], [place] [address] documented as of this encounter Visit Diagnoses Diagnosis Morbid obesity with BMI of 40.0-44.9, adult (HRC)- Primary Obstructive sleep apnea Obstructive sleep apnea (adult) (pediatric) Hypertension, unspecified type (HRC) S/P laparoscopic sleeve gastrectomy documented in this encounter Care Teams Stencil Cutter Machine Relationship Specialty Start Date End Date Rene Bustillo MD [address] [place] [address] PCP - General Family Practice 06/19/22 documented as of this encounter
--- OUTSIDE RECORDS SUMMARY | 2024-04-20 10:21 | XMS_ITS | Encounter Summary ---
Author Organization [facility] Address [address], [place] [address] Care Team Providers Care Water Hydrant Installer Name Role Phone Rene Bustillo MD Primary Care Provider [phone] Encounter Details Date Type Department Care Team (Late Contact Info) Description 03/06/2024 E-Visit [facility] [address] [place] [address] Mychart, [place] [address] Social History Tobacco Use Types Packs/Day Years [...] Upcoming Encounters Date Type Department Care Team ([facility] Contact Info) Description 05/28/2024 9:00 AM LACE TEARING SUPERVISOR Telemedicine [facility] [address] [facility] [address] [place] [address] Ramya Porras, RDN, LD [address] [place] [address] 08/18/2024 9:20 AM LACE TEARING SUPERVISOR Telemedicine [facility] [address] [place] [address] [address] [place] [address] Joseph Chase PA-C [address] [facility] [address] [place] [address] documented as of this encounter Visit Diagnoses Not on filedocumented in this encounter Care Teams Water Hydrant Installer Relationship Specialty Start Date End Date Rene Bustillo MD [address] [place] [address] PCP - General Family Practice 06/19/22 documented as of this encounter
--- OUTSIDE RECORDS SUMMARY | 2024-04-20 10:21 | XMS_ITS | Encounter Summary ---
Author Organization [facility] Address [address], [place] [address] Care Team Providers Care Supervisor Core Drilling Name Role Phone Rene Bustillo MD Primary Care Provider [phone] Reason for Visit * Reason Comments QUESTIONS, GENERAL Entered automaticall y based on patient selection in [employer]. Encounter Details Date Type Department Care Team ([facility] Contact Info) Description 02/12/2024 1:40 PM CDT E-Visit [facility] [address] [facility] [address] [place], [place] [address] Joseph Chase PA-C [address] [place] [address] [place] [id number] Chief Comp: QUESTIONS, GENERAL Social History Tobacco [...] Upcoming Encounters Date Type Department Care Team ([facility] Contact Info) Description 05/28/2024 9:00 AM TRACK LAYING EQUIPMENT OPERATOR Telemedicine [facility] [address] [facility] [address] [place], [place] [address] Ramya Porras RDN, LD [address] [place], [place] [address] 08/18/2024 9:20 AM TRACK LAYING EQUIPMENT OPERATOR [facility]med[facility] [address] [facility] [place], [place] [address] Joseph Chase PAMarco AntonioC [address] [facility] [address] [place], [place] [address] documented as of this encounter Visit Diagnoses Not on filedocumented in this encounter Care Teams Supervisor Core Drilling Relationship Specialty Start Date End Date Rene Bustillo MD [address] [place] [address] PCP - General Family Practice 06/19/22 documented as of this encounter
== END 2024-04-20 10:18 | disposition home or self-care (01) ==
LOC: LKVREF 10:19
PROVIDERS: PCP Family Medicine; Visit Provider Family Medicine
DX: Z00.00 Encounter for general adult medical examination without abnormal findings (principal); E03.9 Hypothyroidism, unspecified; I10 Essential (primary) hypertension; Z13.6 Encounter for screening for cardiovascular disorders
CPT/HCPCS: 80053; 80061

== ENCOUNTER 2024-05-25 08:07 | Outpatient (CLI) | payer BC, SELFPAY ==
--- OUTSIDE RECORDS SUMMARY | 2024-05-25 08:10 | XMS_ITS ---
Author Organization [facility] Address [address], [place] [address] Care Team Providers Care Automobile Parts Assembler Name Role Phone Rene Bustillo MD Primary Care Provider [phone] Active Problems Problem Noted Date Diagnosed Date Primary osteoarthritis of left ankle 04/09/2022 Overview (04/09/2022): Added automatically from request for surgery [id number] Acquired varus deformity of left ankle Overview (04/09/2022): Added automatically from request for surgery [id number] S/P laparoscopic cholecystectomy 02/19/2022 S/P laparoscopic sleeve [...] treatments are documented for this patient in [facility]. Treatments may have been administered in another system. Lifetime Dose Tracking * Chemical Lifetime Dose Automatic Entry Manual Entr y Fluoro Time 3.4 minutes 3.4 minutes 0 minutes Total Air Kerma 4.57 mGy 4.57 mGy 0 mGy
--- OUTSIDE RECORDS SUMMARY | 2024-05-25 08:10 | XMS_ITS | Encounter Summary ---
Author Organization [facility] Address [address] [address] Care Team Providers Care Yarn Washer Name Role Phone Rene Bustillo MD Primary Care Provider [phone] Reason for Visit * Reason Comments QUESTIONS, GENERAL Entered automaticall y based on patient selection in [employer]. Encounter Details Date Type Department Care Team ([facility] [place] Contact Info) Description 04/14/2024 9:20 AM CDT E-Visit [facility] [place] [address] [facility] [address] [place], [place] [address] Joseph Chase PA-C [address] [place] [address] [place] [address] [id number] Chief Comp: QUESTIONS, GENERAL Social History Tobacco [...] Upcoming Encounters Date Type Department Care Team ([facility] [place] Contact Info) Description 05/28/2024 9:00 AM POLICY WRITER SALES Telemedicine [facility] [address] [facility] [address] [place], [place] [address] Ramya Porras RDN, LD [address] [place], [place] [address] 08/18/2024 9:20 AM POLICY WRITER SALES [facility]med[facility] [address] [facility] [place], [place] [address] Joseph Chase PAMarco AntonioC [address] [facility] [address] [place], [place] [address] documented as of this encounter Visit Diagnoses Not on filedocumented in this encounter Care Teams Yarn Washer Relationship Specialty Start Date End Date Rene Bustillo MD [address] [place] [address] PCP - General Family Practice 06/19/22 documented as of this encounter
--- OUTSIDE RECORDS SUMMARY | 2024-05-25 08:10 | XMS_ITS | Clinical Summary ---
Author Organization [facility] Address [address] [place] [address] Care Team Providers Care Personal Lines Insurance Advisor Name Role Phone Rene Bustillo MD Primary Care Provider [phone] Source Comments You are receiving this document as you are listed as the primary care provider,follow-up provider, or the patient has been referred to you for consultation.This is in compliance with the Medicare and[facility] EHR Incentive Program,which states Providers who transition their patient to another setting of careor provider of care or refers their patient to another provider of care shouldprovide summary care record for each transition of care or referral. [employer] Allergies Active Allergy Reactions Criticality Noted Date [...] as needed for Sleep. Active Multiple Vitamins-Iron (MULTIVITAMIN/IRO N OR) Active anastrozole (ARIMIDEX) 1 MG tablet Take 1 Tablet (1 mg) by mouth daily. 06/06/2023 Active vitamin B-12 (AKA: CYANOCOBALAMIN) 1000 MCG tablet Take 1 Tablet (1,000 mcg) by mouth once a week. Take sublingually weekly Active naltrexone (REVIA) 50 MG tablet Take 0.5 Tablets (25 mg) by mouth two times a day. 90 Tablet 1 04/04/2024 Active topiramate (TOPAMAX) 50 MG tablet Take 1 Tablet (50 mg) by mouth two times a day. 180 Tablet 1 04/23/2024 04/23/2025 Active Active Problems Problem Noted Date Diagnosed Date Primary osteoarthritis of left ankle 04/09/2022 Overview (04/09/2022): Added automatically from request for surgery [id number] Acquired varus deformity of left ankle Overview (04/09/2022): Added automatically from request for surgery [id number] S/P laparoscopic cholecystectomy 02/19/2022 S/P laparoscopic sleeve [...] Encounters Date Type Department Care Team Description 04/14/2024 9:20 AM CDT E-Visit [facility] [address] [address] Joseph Chase PA-C Chief Comp: QUESTIONS, GENERAL 04/03/2024 Refill [facility] Weight [address] [address] Joseph Chase PA-C Refill (naltrexone) 03/10/2024 9:40 AM CDT Telemedicine [facility] Weight [address] [address] Joseph Chase PA-C Essential (primary) hypertension (HRC) (Primary Dx); Obesity (BMI 30-39.9) (HRC); Insomnia, unspecified type; S/P laparoscopic sleeve gastrectomy; Obstructive sleep apnea 03/06/2024 E-Visit [facility] Surgery Weight [address] [address] Laureen, [place] Provider 03/05/2024 10:00 AM CDT Lab Visit [facility] [address] [place] [phone] Status post bariatric surgery; Intestinal malabsorption, unspecified type; Personal history of endocrine disorder 02/27/2024 10:00 AM CDT Telemedicine [facility] [address] [address] Ramya Porras RDN, LD Morbid obesity with BMI of 40.0-44.9, adult (HRC) (Primary Dx); Obstructive sleep apnea; Hypertension, unspecified type (HRC); S/P laparoscopic sleeve gastrectomy from Last 3 Months Social History Tobacco [...] Comments Blood Pressure 115/80 06/20/2022 10:49 AM PLASTIC CNC MACHINE OPERATOR Pulse 70 06/20/2022 10:49 AM PLASTIC CNC MACHINE OPERATOR Temperature 36.5 C (97.7 F) 06/20/2022 10:49 AM PLASTIC CNC MACHINE OPERATOR Respiratory Rate 16 06/20/2022 10:49 AM PLASTIC CNC MACHINE OPERATOR Oxygen Saturation 93% 06/20/2022 10:49 AM PLASTIC CNC MACHINE OPERATOR Inhaled Oxygen Concentration - - Weight 93.9 kg (207 lb) 03/10/2024 8:17 AM CDT Height 167.6 cm (5' 6) 03/10/2024 8:17 AM CDT Body Mass Index 33.41 03/10/2024 8:17 AM CDT Plan of Treatment Upcoming Encounters Date Type Department Care Team (Late st Contact Info) Description 05/28/2024 9:00 AM PLASTIC CNC MACHINE OPERATOR Telemedicine [facility] [address] [place] [address] Ramya Porras RDN, LD [address] [place], [place] [address] 08/18/2024 9:20 AM PLASTIC CNC MACHINE OPERATOR Telemedicine [facility] [address] [place] [address] Joseph Chase PA-C [address] [facility] [address] [place] [address] Health Maintenance Due Date Last Done Comments Cervical Cancer Screening Due 1965 Colon Cancer Screening Plan Due 1965 Hep C Screening (Preventive Services) 1965 HIV Screening (Preventive Services) 1981 Adult Preventive Visit 1983 HepB (1) 1984 Mammogram 09/23/2019 09/22/2018 Diabetes Screening- (based on age and BMI) 11/03/2023 11/02/2020 COVID-19 Vaccine ( season) 2024 04/27/2022, 07/23/2021, 01/11/2021, Additional history exists Influenza (#1) 2024 04/11/2023, 1109/2021, 03/16/2021, Additional history exists Cholesterol 11/02/2025 11/02/2020 [...] on patient's age to complete this topic Infant RSV Aged Out No longer eligi ble based on patient's age to complete this topic MCV4 Aged Out No longer eligi ble based on patient's age to complete this topic Pneumococcal Aged Out No longer eligi ble based on patient's age to complete this topic Medical Devices Implanted Type Area Front End Drupal Developer Device Identifier Shelf Expiration Date Model / Serial / Lot Infinity Adaptis Tibial Tray Size 1 Implanted:Qty : 1 on 06/19/2022 by Jabari Rios DPM at [facility] DEVICE Left: [employer] 04/17/2030 [id number] / 000 / [id number] Infinity Adaptis Benjamín Dome, Flat Cut Implanted:Qty : 1 on 06/19/2022 by Jabari Rios DPM at [facility] Left: AN[employer] 05/14/2030 [id number] / 000 / [id number] Infinity Everlast Cross-Linked Poly Insert Size 1/1+, H: 8mm Implanted:Qty : 1 on 06/19/2022 by Jabari Rios DPM at [facility] Left: [employer] 11/29/2029 [id number] / 000 / [id number] Procedures Procedure Name Priority Date/Time Associated Diagnosis [...] - 80 ng/mL 03/05/2024 2:56 PM CDT [facility] Blood Venipuncture / Unknown 03/05/2024 9:23 AM CDT 03/05/2024 9:23 AM CDT Joseph Chase PA-C LAB_1 Performing Organization Address [facility] de Phone Number [facility] [address] [place] [address] * Intact PTH (03/05/2024 9:23 AM CDT) Intact PTH 31 10 - 100 pg/mL 03/05/2024 2:50 PM CDT [facility] Blood Venipuncture / Unknown 03/05/2024 9:23 AM CDT 03/05/2024 9:23 AM CDT Joseph Chase PA-C LAB_1 Performing Organization Address [facility] Phone Number [facility] [address] [place] [address] * PREALBUMIN (03/05/2024 9:23 AM CDT) Prealbumin 26.5 16.0 - 38.0 mg/dL 03/05/2024 2:39 PM CDT [facility] Blood Venipuncture / Unknown 03/05/2024 9:23 AM CDT 03/05/2024 9:23 AM CDT Joseph Sara Salvatore CANTOR LAB_1 Performing Organization Address [facility] Phone Number [facility] [address] [place] [address] * Complete Blood Count-No Diff (03/05/2024 9:23 AM CDT) WBC 4.5 3.5 - 10.5 x10(9)/L 03/05/2024 9:31 AM CDT [facility] RBC 4.43 3.90 - 5.03 x10(12)/L 03/05/2024 9:31 AM CDT [facility] Hemoglobin 13.8 12.0 - 15.5 g/dL 03/05/2024 9:31 AM CDT [facility] HCT 41.6 34.9 - 44.5 % 03/05/2024 9:31 AM CDT [facility] MCV 93.9 80.0 - 100.0 fL 03/05/2024 9:31 AM CDT [facility] MCH 31.2 27.6 - 33.3 pg 03/05/2024 9:31 AM CDT [facility] MCHC 33.2 31.5 - 35.2 g/dL 03/05/2024 9:31 AM CDT [facility] RDW 13.3 11.9 - 15.5 % 03/05/2024 9:31 AM CDT [facility] Platelets 220 150 - 450 x10(9)/L 03/05/2024 9:31 AM CDT [facility] Blood Venipuncture / Unknown 03/05/2024 9:23 AM CDT 03/05/2024 9:23 AM CDT Joseph Chase PA-C LAB_1 Performing Organization Address [facility]/ZIP Co de Phone Number [facility] [address] [place] [phone] * FERRITIN (03/05/2024 9:23 AM CDT) Ferritin 87 9 - 204 ng/mL 03/05/2024 3:06 PM CDT [facility] Blood Venipuncture / Unknown 03/05/2024 9:23 AM CDT 03/05/2024 9:23 AM CDT Joseph Chase PA-C LAB_1 [facility] [address] [place], [place] [address] * B12 ONLY (03/05/2024 9:23 AM CDT) Vitamin B12 597 213 - 816 pg/mL 03/05/2024 3:13 PM CDT [facility] Blood Venipuncture / Unknown 03/05/2024 9:23 AM CDT 03/05/2024 9:23 AM CDT Joseph E Salvatore CANTOR LAB_1 Performing Organization Address [facility] de Phone Number [facility] [address] * IRON PROFILE (IRON,TIBC,%SAT.(CALC)) (03/05/2024 9:23 AM CDT) Iron 98 50 - 170 mcg/dL 03/05/2024 2:40 PM CDT [facility] Transferrin 245 180 - 382 mg/dL 03/05/2024 2:40 PM CDT [facility] TIBC, Calculated 306 240 - 450 mcg/dL 03/05/2024 2:40 PM CDT [facility] % Saturation, Calculated 32 10 - 50 % 03/05/2024 2:40 PM CDT [facility] Blood Venipuncture / Unknown 03/05/2024 9:23 AM CDT 03/05/2024 9:23 AM CDT Joseph Sara Salvatore LARRYC LAB_1 Performing Organization Address [facility] de Phone Number [facility] [address] * Calcium (03/05/2024 9:23 AM CDT) Pathologist [facility] Calcium 9.7 8.4 - 10.4 mg/dL 03/05/2024 3:19 PM CDT [facility] Blood Venipuncture / Unknown 03/05/2024 9:23 AM CDT 03/05/2024 9:23 AM CDT Joseph BRONSON-C LAB_1 Performing Organization Address [facility] Co de Phone Number [facility] [address] [place] [phone] * (ABNORMAL) Lipid Panel and Direct LDL(If Needed) (11/02/2020 10:28 AM CDT) Cholesterol 176 0 - 199 mg/dL 11/02/2020 12:11 PM CDT [facility] Triglyceride 150(H) <=149 mg/dL 11/02/2020 12:11 PM CDT [facility] HDL Cholesterol 55 >=40 mg/dL 12:11 PM CDT [facility] LDL, Calculated 91 <130 mg/dL 12:11 PM CDT [facility] Non HDL Chol, Calculated 121 mg/dL 11/02/2020 12:11 PM CDT [facility] Cholesterol/HDL Ratio 3.2 11/02/2020 12:11 PM CDT [facility] Hours Fasting 12 11/02/2020 12:11 PM CDT [facility] Blood Venipuncture / Unknown 11/02/2020 10:28 AM CDT 11/02/2020 10:33 AM CDT Joseph Chase PA-C LAB_1 [facility] [address] [place], [place] [address] [place] [address] * Hgb A1c (11/02/2020 10:28 AM CDT) Hemoglobin A1C 5.4 <=5.6 % 11/02/2020 2:00 PM CDT [facility] Blood Venipuncture / Unknown 11/02/2020 10:28 AM CDT 11/02/2020 10:33 AM CDT Joseph Chase PA-C LAB_1 [facility] [id number] [place] [address] from Last 3 Months or Most Recently Relevant to Health Maintenance Advance Directives * Full Code (Latest Code Status on File) Date Activated Date Inactivated Comments 06/19/2022 3:26 PM 06/20/2022 3:46 PM * Full Code Date Activated Date Inactivated Comments 02/19/2022 2:01 PM 02/20/2022 1:42 PM Care Teams Personal Lines Insurance Advisor Relationship Specialty Start Date End Date Rene Bustillo MD [address] [place] [address] PCP - General Family Practice 06/19/22
--- OUTSIDE RECORDS SUMMARY | 2024-05-25 08:10 | XMS_ITS | Encounter Summary ---
Author Organization [facility] Address [address], [place] [address] Care Team Providers Care Planting Material Remover Name Role Phone Rene Bustillo MD Primary Care Provider [phone] Reason for Visit * Reason Onset Date Comments Refill 04/03/2024 naltrexone Encounter Details Date Type Department Care Team (Late st Contact Info) Description 04/03/2024 Refill [facility] [address] [facility] [address] [place], [place] [address] Joseph Chase PA-C [address] [facility] [address] [place], [place] [id number] Refill (naltrexone) Social History Tobacco Use Types [...] daily. Route: Oral Class: E-Prescribing Order #: [id number] documented in this encounter Plan of Treatment Upcoming Encounters Date Type Department Care Team (Late st Contact Info) Description 05/28/2024 9:00 AM TRAVELING SECRETARY Telemedicine [facility] [place] [address] [facility] [address] [place] [id number] Ramya Porras RDN, LD [address] [place], [place] [phone] 08/18/2024 9:20 AM TRAVELING SECRETARY Telemedicine [facility] [place] [address] [facility] [address] [place], [place] [address] Joseph Chase PA-C [address] [facility] [address] [place] [phone] documented as of this encounter Visit Diagnoses Not on filedocumented in this encounter Care Teams Planting Material Remover Relationship Specialty Start Date End Date Rene Bustillo MD [address] [place] [address] PCP - General Family Practice 06/19/22 documented as of this encounter
--- OUTSIDE RECORDS SUMMARY | 2024-05-25 08:10 | XMS_ITS | Encounter Summary ---
Author [facility] Address [address], [place] [address] Care Team Providers Care Diabetes Specialist Name Role Phone Rene Bustillo MD Primary Care Provider [phone] Reason for Visit * Reason Comments Nutrition Counseling Encounter Details Date Type Department Care Team (Late st Contact Info) Description 02/27/2024 10:00 AM CDT Telemedicine [facility] [address] [facility] [address] [place], [place] [address] Ramya Porras, SAMATNHAN, LD [address] [place] [address] Morbid obesity with BMI of [...] st Contact Info) Description 05/28/2024 9:00 AM SHELLFISH CHECKER Telemedicine [facility] [address] [facility] [address] [place], [place] [address] Ramya Porras RDN, LD [address] [place], [place] [address] 08/18/2024 9:20 AM SHELLFISH CHECKER Telemedicine [facility] [place] [address] [facility] [address] [place], [place] [address] Joseph Chase PA-C [address] [facility] [address] [place], [place] [address] documented as of this encounter Visit Diagnoses Diagnosis Morbid obesity with BMI of 40.0-44.9, adult (HRC)- Primary Obstructive sleep apnea Obstructive sleep apnea (adult) (pediatric) Hypertension, unspecified type (HRC) S/P laparoscopic sleeve gastrectomy documented in this encounter Care Teams Diabetes Specialist Relationship Specialty Start Date End Date Rene Bustillo MD [address] [place] [address] PCP - General Family Practice 06/19/22 documented as of this encounter
--- OUTSIDE RECORDS SUMMARY | 2024-05-25 08:10 | XMS_ITS | Encounter Summary ---
Author Organization [facility] Address [address], [place] [address] Care Team Providers Care Bonded Strand Operator Name Role Phone Rene Bustillo MD Primary Care Provider [phone] Reason for Referral * Consult/Transfer Care (Routine) - New Request Specialty Diagnoses / Procedures Referred By Adarsh marcelo Referred To Contact Diagnoses Insomnia, unspecified type Joseph Chase PA-C [address] [facility] [address] [place] [address] Referral ID Status Reason Start Date Expiration Date V isits Requested Visits Authorized [id number] New Request 03/10/2024 06/09/2025 1 1 Scheduling Instructions Your clinician has recommended an appointment with [facility]. This is not a sleep study order and must first be reviewed by a sleep specialist to determine the next steps. The review process looks at multiple factors including your insurance requirements, personal health history, and [place] [employer] guidelines. This order will be reviewed within 1 business day and sent to scheduling for one of the following appointments: - Consultation/Office Visit with a Sleep Medicine Specialist - Consultation/Office Visit with an Insomnia Specialist - Portable/Home Sleep Test If you do not hear from our scheduling staff within the next 7 days, please contact us at [phone] and select option 1. Question Answer Appointment Urgency Non-Urgent Sleep Service Requested CBT for Insomnia Insomnia Symptoms Difficulty Staying Asleep Comments Comments: Age/Sex: 58 y.o. / female Height: 03/10/24 : 1.676 m (5' 6) Weight: 09/17/24 : 93.9 kg (207 lb) BMI: Estimated body mass index is 33.41 kg/m as calculated from the following: Height as of this encounter: 1.676 m (5' 6). Weight as of this encounter: 93.9 kg (207 lb). Reason for Visit * Reason Comments Sleeve Surg Followup Video Visit Encounter Details Date Type Department Care Team (Late st Contact Info) Description 03/10/2024 9:40 AM CDT Telemedicine [facility] [address] [facility] [address] [place] [address] Joseph Chase PA-C [address] [facility] [address] [place] [address] Essential (primary) hypertension (HRC) (Primary Dx); Obesity [...] level: Not on file Occupational History Occupation: sales account leader Tobacco Use Smoking status: Former Current packs/day: [...] Resource Strain: High Risk (06/24/2021) Received from [facility] Financial Resource Strain Difficulty of Paying Living Expenses: Not on file Difficulty of Paying Living Expenses: Not on file Food Insecurity: No Food Insecurity (06/13/2021) Received from [facility] Hunger Vital Sign Worried About Running Out of Food in the Last Year: Never true Ran Out of Food in the Last Year: Never true Transportation Needs: No Transportation Needs (06/13/2021) Received from [facility] - Transportation Lack of Transportation (Medical): No Lack of Transportation (Non-Medical): No Physical Activity: Insufficiently Active (06/13/2021) Received from [facility] Exercise Vital Sign Days of Exercise per Week: 2 days Minutes of Exercise per Session: 20 min Stress: No Stress Concern Present (06/13/2021) Received from [facility] [employer] [place] [employer] - Occupational Stress Questionnaire Feeling of Stress : Only a little Social Connections: Unknown (12/07/2022) Received from [facility] Social [facility] Frequency of Communication with Friends and Family: Not on file Intimate Partner Violence: Not At Risk (06/13/2021) Received from [facility] Humiliation, Afraid, Rape, and Kick questionnaire Fear of Current or Ex-Partner: No Emotionally Abused: No Physically Abused: No Sexually Abused: No Housing Stability: Low Risk (06/13/2021) Received from [facility] Housing Stability Vital Sign Unable to Pay for Housing in the Last Year: No Number of Places Lived in the Last Year: 1 In the last 12 months, was there a time when you did not have a steady place to sleep or slept in [facility] (including now)?: No Patient Employment Employer: Address: [...] of weight: ICD-10-CM 1. Essential (primary) hypertension ([facility]) I10 2. Obesity (BMI 30-39.9) ([facility]) E66.9 3. Insomnia, unspecified type G47.00 [...] time for visit was 40 minutes including [id number] time spent reviewing medical records, counseling, documentation, [...] st Contact Info) Description 05/28/2024 9:00 AM GAME PRESERVE MANAGER Telemedicine [facility] [address] [place] [address] Ramya Porras RDN, LD [address] [facility] [place] [address] 08/18/2024 9:20 AM GAME PRESERVE MANAGER Telemedicine [facility] [address] [facility] [place], [place] [address] Joseph Chase PA-C [address] [facility] [address] [place], [place] [address] Scheduled Referrals Name Type Priority Associated Diagnoses Orde r Schedule Sleep Services Referral Routine Insomnia, unspecified type Ordered: 03/10/2024 documented as of this encounter Visit Diagnoses Diagnosis Essential (primary) hypertension (HRC)- Primary Unspecified essential hypertension Obesity (BMI 30-39.9) (HRC) Obesity, unspecified Insomnia, unspecified type S/P laparoscopic sleeve gastrectomy Obstructive sleep apnea Obstructive sleep apnea (adult) (pediatric) documented in this encounter Care Teams Bonded Strand Operator Relationship Specialty Start Date End Date Rene Bustillo MD [address] [place] [address] PCP - General Family Practice 06/19/22 documented as of this encounter
--- OUTSIDE RECORDS SUMMARY | 2024-05-25 08:10 | XMS_ITS | Encounter Summary ---
Author Organization [facility] Address [address], [place] [address] Care Team Providers Care Aggregate Conveyor Operator Name Role Phone Rene Bustillo MD Primary Care Provider [phone] Encounter Details Date Type Department Care Team (Late Contact Info) Description 03/05/2024 10:00 AM CDT Lab Visit [address] [address] Status post bariatric surgery; Intestinal [...] Upcoming Encounters Date Type Department Care Team ([facility] Contact Info) Description 05/28/2024 9:00 AM RETAIL GROCER Telemedicine [facility] [address] [facility] [address] [place], [place] [address] Ramya Porras, RDN, LD [address] [place] [address] 08/18/2024 9:20 AM RETAIL GROCER Telemedicine [facility] [address] [facility] [address] [place] [address] Joseph Chase PA-C [address] [facility] [address] [place] [address] documented as of this encounter Procedures Procedure [...] - 38.0 mg/dL 03/05/2024 2:39 PM CDT [facility] Blood Venipuncture / Unknown 03/05/2024 9:23 AM CDT 03/05/2024 9:23 AM CDT Joseph Chase PA-C LAB_1 Performing Organization Address [facility] Co de Phone Number [facility] [address] * Calcium (03/05/2024 9:23 AM CDT) Calcium 9.7 8.4 - 10.4 mg/dL 03/05/2024 3:19 PM CDT [facility] Blood Venipuncture / Unknown 03/05/2024 9:23 AM CDT 03/05/2024 9:23 AM CDT Joseph Chase PA-C LAB_1 Performing Organization Address [facility] de Phone Number [facility] [address] [place] [address] * Intact PTH (03/05/2024 9:23 AM CDT) Intact PTH 31 10 - 100 pg/mL 03/05/2024 2:50 PM CDT [facility] Blood Venipuncture / Unknown 03/05/2024 9:23 AM CDT 03/05/2024 9:23 AM CDT Joseph Chase PA-C LAB_1 Performing Organization Address [facility] de Phone Number [facility] [address] * Vitamin D 25-Hydroxy, Total (03/05/2024 9:23 AM CDT) Vitamin D, 25-OH, Total 63 30 - 80 ng/mL 03/05/2024 2:56 PM CDT [facility] Blood Venipuncture / Unknown 03/05/2024 9:23 AM CDT 03/05/2024 9:23 AM CDT Joseph E Gospodarek PA-C LAB_1 Performing Organization Address [facility] Co de Phone Number [facility] [address] * FERRITIN (03/05/2024 9:23 AM CDT) Ferritin 87 9 - 204 ng/mL 03/05/2024 3:06 PM CDT [facility] Blood Venipuncture / Unknown 03/05/2024 9:23 AM CDT 03/05/2024 9:23 AM CDT Joseph Ruiz Salvatore BRONSON-C LAB_1 Performing Organization Address [facility] Phone Number [facility] [address] * IRON PROFILE (IRON,TIBC,%SAT.(CALC)) (03/05/2024 9:23 AM CDT) Pathologist [facility] Iron 98 50 - 170 mcg/dL 03/05/2024 2:40 PM CDT [facility] Transferrin 245 180 - 382 mg/dL 03/05/2024 2:40 PM CDT [facility] TIBC, Calculated 306 240 - 450 mcg/dL 03/05/2024 2:40 PM CDT [facility] % Saturation, Calculated 32 10 - 50 % 03/05/2024 2:40 PM CDT [facility] Blood Venipuncture / Unknown 03/05/2024 9:23 AM CDT 03/05/2024 9:23 AM CDT Joseph Ruiz Salvatore LARRYC LAB_1 Performing Organization Address [facility] de Phone Number [facility] [address] * B12 ONLY (03/05/2024 9:23 AM CDT) Vitamin B12 597 213 - 816 pg/mL 03/05/2024 3:13 PM CDT [facility] Blood Venipuncture / Unknown 03/05/2024 9:23 AM CDT 03/05/2024 9:23 AM CDT Joseph Chase PA-C LAB_1 [facility] [address] [place], [place] [address] * Complete Blood Count-No Diff (03/05/2024 9:23 AM CDT) WBC 4.5 3.5 - 10.5 x10(9)/L 03/05/2024 9:31 AM CDT [facility] RBC 4.43 3.90 - 5.03 x10(12)/L 03/05/2024 9:31 AM T [facility] Hemoglobin 13.8 12.0 - 15.5 g/dL 03/05/2024 9:31 AM T [facility] HCT 41.6 34.9 - 44.5 % 03/05/2024 9:[address] [facility] MCV 93.9 80.0 - 100.0 fL 03/05/2024 9:31 AM T [facility] MCH 31.2 27.6 - 33.3 pg 03/05/2024 9:[address] [facility] MCHC 33.2 31.5 - 35.2 g/dL 03/05/2024 9:[address] [facility] RDW 13.3 11.9 - 15.5 % 03/05/2024 9:[address] [facility] Platelets 220 150 - 450 x10(9)/L 03/05/2024 9:[address] [facility] Blood Venipuncture / Unknown 03/05/2024 9:23 AM CDT 03/05/2024 9:23 AM CDT Joseph Chase PA-C LAB_1 [facility] [address] [place] [address], [facility] documented in this encounter Visit Diagnoses Diagnosis Status post bariatric surgery Bariatric surgery status Intestinal malabsorption, unspecified type Personal history of endocrine disorder Personal history of other endocrine, metabolic, and immunity disorders documented in this encounter Care Teams Aggregate Conveyor Operator Relationship Specialty Start Date End Date Rene Bustillo MD [address] [place] [address] PCP - General Family Practice 06/19/22 documented as of this encounter
--- OUTSIDE RECORDS SUMMARY | 2024-05-25 08:10 | XMS_ITS | Encounter Summary ---
Author Organization [facility] Address [address], [place] [address] Care Team Providers Care Manager Financial Name Role Phone Rene Bustillo MD Primary Care Provider Encounter Details Date Type Department Care Team (Late Contact Info) Description 03/06/2024 E-Visit [facility] [address] [place] [address] Mychart, [place] [address] Social History Tobacco Use Types Packs/Day Years [...] Center Contact Info) Description 05/28/2024 9:00 AM COMPOSITION TEACHER Telemedicine [facility] [address] [facility] [address] [place] [address] Ramya Porras, RDN, LD [address] [place] [address] 08/18/2024 9:20 AM COMPOSITION TEACHER Telemedicine [facility] [address] [place] [address] [address] [place] [address] Joseph Chase PA-C [address] [facility] [address] [place] [address] documented as of this encounter Visit Diagnoses Not on filedocumented in this encounter Care Teams Manager Financial Relationship Specialty Start Date End Date Rene Bustillo MD [address] [place] [address] PCP - General Family Practice 06/19/22 documented as of this encounter
--- OUTSIDE RECORDS SUMMARY | 2024-05-25 08:10 | XMS_ITS | Clinical Summary ---
Author Organization [facility] Address [place], [place] [address] Care Team Providers Care Water Registrar Name Role Phone Rene Bustillo MD Primary Care Provider [phone] Allergies No known active allergies Medications Medication [...] Encounters Date Type Department Care Team Description 05/25/2024 8:00 AM PARTNER MARKETING MANAGER Ancillary Procedure [facility] [address] [place] [address] Arrived 03/05/2024 8:30 AM CDT Office Visit [facility] [address] [place] [address] Murray Matias MD from Last 3 Months [...] 74 12/31/2022 6:05 PM CDT Temperature 36.6 C (97.8 F) 12/31/2022 6:05 PM CDT Respiratory Rate 22 02/10/2018 8:58 AM CDT [...] booster 05/13/2022 05/13/2012, 04/25 (Completed outside of [facility]), 07/06/2003, Additional history exists COVID-19 vaccine series ( season) 2024 04/27/2022, 07/23/2021, 01/11/2021, Additional history exists Influenza for age 50-64 02/23/2024 04/10/20 17, 04/17/2016, 04/28/2015, Additional history exists Pap test for age 21-65 12/18/2024 , 12/18/2021, 08/10/2019, Additional history exists Colonoscopy through age 75 05/30/202605/30, 07/08/2015 (Completed outside of [facility]) Tdap Completed 05/13/2012, 04/25 (Completed outside of [facility]) Pneumococcal series for age 6-64 Aged Out No longer eligible based on patient's age to complete this topic Procedures Procedure Name Priority Date/Time Associated Diagnosis Comments HPV HIGH RISK Routine 12/18/2021 9:30 AM CDT XR MAMMO BILAT SCREENING Routine 09/22/2018 9:05 AM CDT Visit for screening mammogram SCAN-COLONOSCOPY 05/30/2016 12:0 0 AM PARTNER MARKETING MANAGER from Last 3 Months or Most Recently Relevant to Health Maintenance Results * HPV HIGH RISK (12/18/2021 9:30 AM CDT) TYPE 16 Negative Negative 12/20/2021 1:47 PM CDT [facility] TYPE 18 Negative Negative 12/20/2021 1:47 PM CDT [facility] OTHER HIGH RISK TYPES Negative Negative 12/20/2021 1:47 PM CDT [facility] Other (Cervical/Vagina l) 12/18/2021 9:30 AM CDT 12/18/2021 5:57 PM CDT Narrative [facility] - 12/20/2021 1:47 PM CDT HPV types 16, 18, 31, 33, 35, 39, 45, 51, 52, 56, 58, 59, 66 and 68 DNA were undetectable or below the pre-set threshold. Methodology: One Codex Octavio 4800 HPV Test Rene Bustillo MD [facility] [address] [place] [address], * XR MAMMO BILAT SCREENING (09/22/2018 9:05 AM CDT) Anatomical Region Laterality Modality BREASTS, Breast Left, Breast Right Bilateral Mammography Impressions 09/22/2018 2:18 PM CDT There is no radiographic evidence for malignancy. Recommend annual mammograms. A lay language report of this examination will be provided to the patient. MAMMOGRAM ASSESSMENT: ACR 1 Negative Narrative 09/22/2018 2:18 PM CDT XR MAMMO BILAT SCREENING [[id number]] CLINICAL HISTORY: This is an asymptomatic 53 y.o. patient. INDICATION FOR EXAM: Mammogram Screening. TECHNIQUE: CC & MLO views were obtained. This digital study was evaluated with the assistance of Computer-Aided Detection. COMPARISON FILM: Yes 09/17/17 [facility] FINDINGS: Mammographically, the breast tissue has scattered fibroglandular densities. There are no dominant masses, suspicious micro calcifications or areas of architectural distortion. Rene Bustillo MD MAMMO * SCAN-COLONOSCOPY (05/30/2016 12:00 AM PARTNER MARKETING MANAGER) Scanner OTHER from Last 3 Months or Most Recently Relevant to Health Maintenance Care Teams Water Registrar Relationship Specialty Start Date End Date Rene Bustillo MD [address] [place] [address] PCP - General Family Practice 09/19/18
== END 2024-05-25 08:08 | disposition home or self-care (01) ==
LOC: RAD 08:08
PROVIDERS: PCP Family Medicine; Visit Provider Internal Medicine
DX: Q23.1 Congenital insufficiency of aortic valve (principal); I35.2 Nonrheumatic aortic (valve) stenosis with insufficiency
CPT/HCPCS: 93306

== ENCOUNTER 2024-07-13 08:30 | Outpatient (RCR) | payer BC, SELFPAY ==
--- NOTE | 2023-11-28 16:00 | ONC.NURNOTE ---
Addendum entered by Jacquelyn Moore 12/04/23 13:19: Reviewed with Dr. Freeman. Patient instructed to hold Anastrozole for 2 weeks and pay close attention to her sleep patterns. [facility] will call patient in a few weeks for an update on her condition. Original Note: Patient called to discuss concerns about her sleep. She states that most nights she is only getting a few hours of good sleep. This has gotten worse since switching to anastrozole in 04/2023. She is using the Ambien Dr. Freeman prescribed most nights now but it is only helping her to fall asleep but then she wakes up a few hours later and tosses and turns the rest of the night. She does not feel that anything in particular is waking her up (pain, hot flashes, etc.) and she denies new stressors or anxiety that could be impacting her sleep. She is wondering if we have any suggestions. I assured her that I would discuss her concern with Dr. Freeman and return her call.
--- NOTE | 2023-12-19 14:06 | ONC.NURNOTE ---
Addendum entered by Jacquelyn Moore 12/23/23 11:44: Patient returned call to [facility]. She reports overall having improved sleep being off the Anastrozole. Prior to taking the drug holiday, she had switched to taking it in the mornings and this alone significantly improved her sleep. She plans to resume Anastrozole with a continued trial of taking it in the mornings. She has only needed to take Ambien once the past few weeks. Patient will call with any questions or concerns. Original Note: Follow up call placed to patient for an update on her condition since holding her anastrozole. Requested patient return call with an update.
--- NOTE | 2024-02-14 14:29 | ONC.NURNOTE ---
Addendum entered by Jacquelyn Moore 02/27/24 08:24: Patient informed that Dr. Freeman is not aware of any contraindications of taking topical 5FU and/or Niacinamide with anastrozole. I informed patient that we are still waiting on pathology reports from [facility]. Patient states she will bring a copy to her next visit. 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. They are recommending topical 5FU and/or Niacinamide supplements as treatments. She is wanting to make sure that these would not interfere with her breast cancer treatments. I assured her that I would review with Dr. Freeman and we would get back to her. I have also requested that [facility] fax us the pathology report and treatment recommendations.
== END 2024-09-26 23:59 | disposition home or self-care (01) ==
LOC: CCIC 08:30
PROVIDERS: PCP Family Medicine; Referring Provider Family Medicine; Visit Provider Physician Assistant
DX: C50.912 Malignant neoplasm of unspecified site of left female breast (principal); Z17.0 Estrogen receptor positive status [ER+]; G47.00 Insomnia, unspecified; E66.9 Obesity, unspecified; Z79.811 Long term (current) use of aromatase inhibitors
CPT/HCPCS: 99214; 99215; G0463

== ENCOUNTER 2025-03-16 09:03 | Outpatient (CLI) | payer BC, SELFPAY ==
--- NOTE | 2025-03-16 09:15 | CRLHL7_ITS ---
For Patients: As a result of the Century Cures Act, medical imaging exams and procedure reports are released immediately into your electronic medical record. You may view this report before your referring provider. If you have questions, please contact your health care provider. INDICATION: BILATERAL SCREENING MAMMOGRAM, ASYMPTOMATIC 59 Y/O FEMALE COMPARISON: 03/11/2024, 03/04/2023, 03/01/2022 TECHNIQUE: Digital mammogram in CC and MLO projections including computer-aided detection (CAD) and tomosynthesis. BREAST COMPOSITION: The breasts are almost entirely fatty. FINDINGS: No suspicious findings. ASSESSMENT: BI-RADS 2 Benign RECOMMENDATION: Annual screening mammogram. A lay language report of this examination will be provided to the patient. Dictated by: Melissa Lara MD @ 03/17/2025 11:10:53 (Electronically Signed)
--- NOTE | 2025-03-16 09:45 | CRLHL7_ITS ---
For Patients: As a result of the Century Cures Act, medical imaging exams and procedure reports are released immediately into your electronic medical record. You may view this report before your referring provider. If you have questions, please contact your health care provider. DXA BONE MINERAL DENSITY STUDY Current height (in): 66. Weight (lb): 194. Menopause age: 56. Ethnicity: White. 1. Have you had a previous hip or vertebral fracture? No. 2. Have you had any fractures during your adult life which did not result from significant trauma (e.g., auto accident)? No. 3. Did either of your parents have a hip fracture? No. 4. Do you smoke? No. 5. Have you ever taken Glucocorticoids? No. 6. Do you have rheumatoid arthritis? No. 7. Do you have secondary osteoporosis? No. 8. Do you drink 3 or more alcoholic drinks per day? No. 9. Are you being treated for osteoporosis? No. 10. Have you ever taken any of the following medications: Actonel, Evista, Fosamax, Miacalcin, Reclast, Boniva, Forteo, HRT (i.e. estrogen/hormone therapy), Protelos, Prolia, Vitamin D, Calcium, other ??? please specify. ANSWER: Yes, Vitamin D, calcium, Tamoxifen 11. Do you have any of the following medical conditions: Anorexia or bulimia, asthma or emphysema, end stage renal disease, hyperparathyroidism, any seizure disorders, cancer, inflammatory bowel diseases, hysterectomy, other ??? please specify. ANSWER: Yes, cancer. 12. What was your maximum height (inches)? 66. 13. Do you perform weight bearing exercise regularly? Yes. 14. Do you regularly consume dairy products? Yes. 15. Do you drink caffeinated beverages? Yes. If female: 16. At what age did your period start? 12. 17. Are you premenopausal? No. 18. How many full term pregnancies have you had? 3. 19. Have you ever missed your period for more than 6 months in a row (not including or menopause)? No. TECHNIQUE: Bone mineral density study was performed using the Whe[employer]. FINDINGS: The results of the study expressed as bone mineral density (BMD) are as follows: Lumbar spine L1 to L4: BMD: 1.252 g/cm2. T-score: 1.9. Z-score: 3.2 Neck Left: BMD: 0.866 g/cm2. T-score: 0.2. Z-score: 1.4 Right: BMD: 0.883 g/cm2. T-score: 0.3. Z-score: 1.6 Total Left: BMD: 0.978 g/cm2. T-score: 0.3. Z-score: 1.2 Right: BMD: 1.026 g/cm2. T-score: 0.7. Z-score: 1.6 IMPRESSION: Normal bone density. *Comparison exams done prior to 11/2019 were performed on different unit, mapp2link. COMPARISON: Compared with scan of 02/28/2023, the bone mineral density has decreased by 9.1 percent at the spine and decreased by 6.5 percent at the hip. ZAY COHEN M.D. Transcribed: 9:18 a.m. [email or web address] ivy/Dictated by: Zay Cohen MD @ 03/19/2025 8:03:00 AM (Electronically Signed)
== END 2025-03-16 09:04 | disposition home or self-care (01) ==
PROVIDERS: PCP Family Medicine; Visit Provider Family Medicine
DX: Z12.31 Encounter for screening mammogram for malignant neoplasm of breast (principal); Z13.820 Encounter for screening for osteoporosis
CPT/HCPCS: 77063; 77067; 77080

== ENCOUNTER 2025-03-23 09:35 | Outpatient (CLI) | payer BC, SELFPAY ==
[2025-03-29 10:02] LABS: Pap Test Digital Imaging Done
== END 2025-03-23 09:36 | disposition home or self-care (01) ==
LOC: LKVREF 09:35
PROVIDERS: PCP Family Medicine; Visit Provider Family Medicine
DX: Z00.00 Encounter for general adult medical examination without abnormal findings (principal)
CPT/HCPCS: 88141; 88142; 88175

== ENCOUNTER 2025-04-26 08:36 | Outpatient (CLI) | payer BC, SELFPAY | END 2025-04-26 08:37 | disposition home or self-care (01) | LOC: RAD 08:37 | PROVIDERS: PCP Family Medicine; Visit Provider Internal Medicine | DX: Q23.1 Congenital insufficiency of aortic valve (principal); I35.2 Nonrheumatic aortic (valve) stenosis with insufficiency | CPT/HCPCS: 93306 ==

== ENCOUNTER 2025-06-07 15:10 | Outpatient (CLI) | payer BC, SELFPAY ==
--- NOTE | 2025-06-07 15:30 | MR_ITS ---
[address] [address] Phone:?[phone] Fax:?[phone] Referring Physician Information: Raheem Platt [address] [facility] [address] Phone:?[phone] Fax:?[phone] Patient:Nitish Napier D.O.B:?1965 Sex:?Female Phone:?[phone] [facility] MRN:?[id number] Exam Date:?06/07/2025 EXAM: MRI of the LEFT SHOULDER without contrast CLINICAL: Left shoulder pain. Evaluate AC joint and supraspinatus. COMPARISONS: None available. TECHNICAL: Multiplanar multisequence MRI of the left shoulder was obtained. SEDATION: None. CONTRAST: None. FINDINGS: Rotator cuff: Supraspinatus/Infraspinatus: There is full-thickness tearing of the majority of the distal supraspinatus tendon with tendon retraction of approximately 2 cm as seen on coronal series 5 images 12-15. There is attenuation/partial tearing involving the anterior distal infraspinatus tendon seen on coronal series 5 image 16 with mild tendinosis of the remainder of the infraspinatus tendon. No significant fatty atrophy of the muscles. Teres minor: No tendinosis, tear or atrophy. Subscapularis: There is moderate tendinosis and mild partial interstitial tearing of the distal tendon. No significant fatty atrophy of the muscle. Bursae: Subacromial-subdeltoid: Mild bursal fluid. Subcoracoid: No significant bursal fluid. Coracoacromial arch: Acromion morphology: Type I. No os acromiale. Acromiohumeral space: Within normal limits. Coracohumeral space: Within normal limits. Biceps tendon, long head: Mild tendinosis of the long head biceps tendon. There is flattening and marked medial subluxation/near dislocation of the long head biceps tendon in relation to the bicipital groove extending into distal subscapularis tendon fibers. Glenohumeral joint: Physiologic volume of joint fluid. Articular cartilage: No significant chondral loss. Capsule: There is thickening of the inferior glenohumeral ligament with increased scar/synovitis within the rotator interval. No capsular disruption. Labrum: Ill-defined degenerative changes are seen to involve the superior labrum. Remainder of the labrum appears intact as visualized on this nonarthrogram exam. No perilabral cyst identified. Bones: No suspicious marrow signal alteration, fracture or dislocation. Acromioclavicular joint: Mild degenerative change. No AC joint widening. IMPRESSION: 1. Full-thickness tearing of the distal supraspinatus tendon with tendon retraction of approximately 2 cm. Attenuation/partial tearing involving the anterior distal infraspinatus tendon. 2. Moderate tendinosis and mild partial interstitial tearing of the distal subscapularis tendon. 3. Flattening and marked medial subluxation/near dislocation of the long head biceps tendon in relation to the bicipital groove. 4. Findings which can be seen in patients with adhesive capsulitis. 5. Ill-defined degenerative changes involving the superior labrum. 6. Mild AC joint arthrosis. JCZ Electronically signed on 06/08/2025 9:10:00 AM by Arpit Da Silva D.O.
== END 2025-06-07 15:11 | disposition home or self-care (01) ==
LOC: MRI 15:11
PROVIDERS: PCP Family Medicine; Visit Provider Physician Assistant
DX: M25.512 Pain in left shoulder (principal); M75.102 Unspecified rotator cuff tear or rupture of left shoulder, not specified as traumatic; M75.02 Adhesive capsulitis of left shoulder; M19.012 Primary osteoarthritis, left shoulder
CPT/HCPCS: 73221